=== PATIENT | male | born 1960 | race Caucasian/White ===

== ENCOUNTER 2018-10-29 16:10 | Emergency (ER) | payer OTHER, SELFPAY ==
[2018-10-29 16:17] VITALS: BP 187/77; PULSE 103; RESP 14; TEMP 36.7; O2SAT 99; BMI 24.0
--- NOTE | 2018-10-29 16:22 | ED.VISSUMM ---
- ER Visit Summary Date of Service: 10/29/18 Chief Complaint: [Allergic reaction] History of Present Illness: The patient is a 58 M [notes to the emergency department with an allergic reaction to a sting from an insect. Patient apparently was working in the yard when he felt something being him on the right side of the head. Patient developed a rash and became itchy. Patient describes some difficulty breathing. Patient anxious and hyperventilating on arrival the emergency department. Patient currently being treated for leukemia.] Physical Examination: [HEENT-PERRLA, EOMI. Cranial nerves II through XII grossly intact. TMs clear. Mucous membranes moist. No adenopathy. Diffuse facial erythema. There is no angioedema of the tongue or oropharynx or lips. Has some mild edema of the upper eyelids. Cardiovascular-regular rate and rhythm without murmur or ectopy Lungs-clear to auscultation, chest wall stable without crepitus or subcu emphysema Abdomen-normoactive bowel sounds, soft, nontender, no rebound or rigidity, no peritoneal signs. Skin exam-patient has some diffuse erythema of the upper chest and back as well as the upper extremities. Extremities-intact ?4, normal range of motion, normal pulses, atraumatic] Test Results: [] Emergency Department Course and Treatment: [Patient was given Solu-Medrol 125 mill grams IV. Patient initially on arrival was given subcu epi 0.3 mg. Patient given Pepcid 40 mg IV as well as Benadryl 50 mg IV.] Treatment Plan: [Patient will be observed in the department for 4 hours. After multiple evaluations in the department he is now symptom-free and facial erythema and edema have resolved. No evidence of angioedema. Respirations easy and unlabored. Patient will be given a prescription for an EpiPen and also we will treat with prednisone for the next 3 days.] Disposition: [Discharged home stable condition] Impression: [Allergic reaction to insect sting] This note was generated with Rebit dictation software. It may contain incorrect words, spelling, and punctuation that were not noted in review of the chart prior to signing ED Disposition - Plan for ED Patient: Referrals: Noam Jacobson MD [STAFF PHYSICIAN] -
[2018-10-29] MEDS: DiphenhydrAMINE 50 MG/ML Syringe IV (16:24)
[2018-10-29] MEDS: MethylPREDNISolone 125 MG/2 ML Vial IV (16:24)
[2018-10-29 16:31] VITALS: BP 155/75; PULSE 86; RESP 18; O2SAT 99
[2018-10-29 16:33] VITALS: BP 155/75; PULSE 85; RESP 17; O2SAT 99
[2018-10-29 18:11] VITALS: BP 119/63; PULSE 65; RESP 13; O2SAT 99
--- NOTE | 2018-10-29 18:37 | ED.DEP ---
ED Disposition - Plan for ED Patient: Instructions: ALLERGIC REACTION, Insect (General) Prescriptions: Prednisone [Deltasone] 20 mg PO BID #6 tab Prescription Printed Epi Pen (for allergic rxn) 0.3 mg SUBCUT X1 PRN #2 syringe PRN Reason: Anaphylaxis Prescription Printed Referrals: Noam Jacobson MD [STAFF PHYSICIAN] - Luz Maria Diallo MD [STAFF PHYSICIAN] - As Needed
[2018-10-29 19:14] VITALS: BP 123/64; PULSE 65; RESP 17; O2SAT 99
[2018-10-29 20:12] VITALS: BP 129/66; PULSE 99; RESP 16; O2SAT 99
== END 2018-10-29 20:13 | disposition home or self-care (01) ==
LOC: ED 17:06
PROVIDERS: Emergency Provider Emergency Medicine; Family Provider Family Medicine; PCP Family Medicine
DX: T63.481A Toxic effect of venom of other arthropod, accidental (unintentional), initial encounter (principal); R21 Rash and other nonspecific skin eruption; C95.90 Leukemia, unspecified not having achieved remission
CPT/HCPCS: 96372; 96374; 96375; 99282; A4216; J3490

== ENCOUNTER → 2019-10-19 12:08 | Outpatient (CLI) | payer OTHER, SELFPAY ==
[2019-10-19 12:33] LABS: Anion Gap 2 (5-15); BUN 19 mg/dL (7-18); BUN/Creat Ratio 13.3 RATIO (10-20); Calcium,Total 8.9 mg/dL (8.5-10.1); Chloride 108 mmol/L (98-107); Creatinine, Serum 1.43 mg/dL (0.70-1.30); EST Glomerular Filtration Rate 53 mL/min (>60); Est Glom Filt Rate - Afr Amer 65 mL/min (>60); Glucose 134 mg/dL (74-106); Potassium 4.3 mmol/L (3.5-5.1); Sodium Level 139 mmol/L (136-145)
[2019-10-19 12:54] LABS: Microalbumin,Random Urine < 5.0 mg/L (NO RANGE EST.)
== END ==
PROVIDERS: PCP Family Medicine; Referring Provider Family Medicine; Visit Provider Family Medicine
DX: I12.9 Hypertensive chronic kidney disease with stage 1 through stage 4 chronic kidney disease, or unspecified chronic kidney disease (principal); N18.3 Chronic kidney disease, stage 3 (moderate)
CPT/HCPCS: 80048; 82043; 82570

== ENCOUNTER 2020-06-03 10:15 | Outpatient (RCR) | payer OTHER, SELFPAY ==
[2020-06-03] MEDS: COVID-19 VACC, MRNA(PFIZER)/PF 30 MCG/0.3 ML SYRINGE IM (10:18)
[2020-06-24] MEDS: COVID-19 VACC, MRNA(PFIZER)/PF 30 MCG/0.3 ML SYRINGE IM (10:06)
== END 2020-08-26 23:59 ==
LOC: IMMUN 10:15
PROVIDERS: PCP Family Medicine; Visit Provider Family Medicine
DX: Z23 Encounter for immunization (principal)
CPT/HCPCS: 0001A; 0002A; 91300

== ENCOUNTER 2021-07-06 22:00 | Emergency (ER) | payer OTHER, SELFPAY ==
[2021-07-06 22:01] VITALS: BP 190/99; PULSE 82; RESP 18; TEMP 36.6; O2SAT 100; BMI 25.2
[2021-07-06 22:35] LABS: Bacteria 0 SEEN /hpf (None Seen); Mucous, Urine 0 SEEN /hpf (<or=2+); Red Blood Cells-Urine 0 SEEN /hpf (0-5); Squamous Epithelial Cells - UA 0 SEEN /hpf (0-5); White Blood Cells 0 SEEN /hpf (0-5)
[2021-07-06 22:38] LABS: Absolute Neutrophil Count 10.2 X10^3/uL (2.0-7.7); Basophil# 0.03 X10^3/uL; Basophil% 0.2 % (0-1); Eosinophil# 0.13 X10^3/uL; Hematocrit 39.5 % (40-54); Hemoglobin 13.5 g/dL (13.0-16.5); Mean Corp Hgb Conc 34.2 g/dL (32-36); Mean Corpuscular Volume 102.3 fL (80-94); Mean Platelet Vol. 9.7 fl (6.2-12.0); Monocyte% 7.8 % (0-10); NRBC Flagged by Analyzer 0 % (0-5); Neutrophil # 10.18 X10^3/uL (2.7-7.7); Neutrophil % 79.8 % (47-70); Platelet Count 219 K/mm3 (150-450); RBC Distribution Width CV 13.2 % (11.6-14.6); RBC Distribution Width SD 49.5 fl (35.1-43.9); Red Blood Count 3.86 M/mm3 (4.6-6.2); White Blood Count 12.8 K/mm3 (4.4-11.0)
[2021-07-06 22:40] LABS: Color, Urine Yellow (Yellow); Glucose, Dipstick Normal (Normal); Ketone-Dipstick Negative (Negative); Leukocyte Esterase-Dipstick Negative /ul (Negative); Nitrite-Dipstick Negative (Negative); Occult Blood-Urine Negative /ul (Negative); Protein-Dipstick Negative (Negative); Urine Bilirubin Dipstick Negative (Negative); Urine Clarity Clear (Clear); Urine Urobilinogen Normal (Normal)
--- NOTE | 2021-07-06 22:51 | ED.VIS.GI ---
HPI HPI - GI History of Present Illness Chief Complaint: Abd Pain Narrative Narrative: Patient presenting with nausea and epigastric burning. This started this morning upon awakening. Patient states that last night before bed he had chicken Parmesan. He is not a drinker. He states that the burning was less severe this morning and he had orange juice and breakfast. At lunch he had chicken noodle soup and more bland food. He does not have radiation of the pain. Mild nausea without vomiting. No diarrhea or constipation. No fever or chills. PFSH PFSH Home Medications epinephrine 0.3 mg SUBCUT X1 PRN #2 syringe 10/29/18 [Rx Last Taken Unknown] prednisone 20 mg PO BID #6 tab 10/29/18 [Rx Last Taken Unknown] ondansetron 4 mg PO Q8H PRN #10 tab 07/06/21 [Rx Last Taken Unknown] sucralfate [Carafate] 1 g PO BID PRN #200 ml 07/06/21 [Rx Last Taken Unknown] Allergy/AdvReac Type Severity Reaction Status Date / Time erythromycin lactobionate Allergy Rash Verified 07/06/21 22:03 [From Erythrocin] Penicillins [PCN] Allergy Rash Verified 07/06/21 22:03 Social History Smoking Status: Never smoker ROS ROS ED Constitutional Constitutional ED: Denies chills or fever(s) ENT ENT ED: Denies rhinorrhea or sore throat Cardiovascular Cardiovascular: Denies chest pain or palpitations Respiratory/Chest Respiratory/Chest: Denies cough or dyspnea Gastrointestinal Gastrointestinal: Reports abdominal pain and nausea; Denies diarrhea or vomiting Genitourinary Genitourinary ED: Denies dysuria or hematuria Musculoskeletal Musculoskeletal: Denies myalgias Integumentary Denies abscess or rash Neurologic Neurologic: Denies headache(s) or weakness Psychiatric Psychiatric: Denies anxiety or depression EXAM Physical Exam Const Vital Signs: 07/06/21 22:01 Temperature 97.8 F Temperature Source Temporal Pulse Rate 82 Respiratory Rate 18 Blood Pressure 190/99 H Blood Pressure Mean 129 Pulse Ox 100 Oxygen Delivery Method Room Air Positive well nourished General Appearance ED: NAD; Negative for pallor HEENT Reports moist mucous membranes normocephalic and atraumatic Eyes PERRL and EOMs intact bilaterally Resp normal respiratory effort and clear to auscultation bilaterally Cardio regular rate and regular rhythm GI Palpation: soft and tender epigastric Neuro Sensorium / Orientation: alert, oriented to person, oriented to place and oriented to time Psych mental status grossly normal and thought process normal Skin General Skin Exam: Negative for jaundice or pallor Lesions: no lesions Rashes: no rashes MDM MDM MDM Narrative Medical decision making narrative: Patient presenting with epigastric burning. It does appear to be more of a dyspepsia. He has had tomato sauce and orange juice which is worsening his symptoms. I did obtain basic lab work but gave the patient a GI cocktail and Zofran. After GI cocktail and Zofran patient had significant improvement. He states his pain is a 3 or 4. CBC and CMP are only remarkable for slight leukocytosis at 12.8. Urinalysis is normal. Since the patient is feeling better I think he is safe for discharge. I do not believe he needs any CT imaging. After discussion with him it sounds like he has had lasagna 2 nights in a row followed by the chicken Parmesan, orange juice for breakfast and a fair amount of coffee which may be irritating his stomach lining. Could be discharged home with Zofran and Carafate. He will follow-up with his PCP to ensure resolution. Impression: 1. Epigastric pain 2. Gastritis Lab Data Labs: Laboratory Results - last 24 hr 07/06/21 07/06/21 07/06/21 22:20 22:20 22:20 WBC 12.8 H RBC 3.86 L Hgb 13.5 Hct 39.5 L MCV 102.3 H MCH 35.0 H MCHC 34.2 RDW Std Deviation 49.5 H RDW Coeff of Thaddeus 13.2 Plt Count 219 MPV 9.7 Immature Gran % (Auto) 0.200 Neut % (Auto) 79.8 H Lymph % (Auto) 11.0 L [place] % (Auto) 7.8 Eos % (Auto) 1.0 Baso % (Auto) 0.2 Absolute Neuts (auto) 10.2 H Absolute Lymphs (auto) 1.40 Nucleated RBC % 0 Sodium 139 Potassium 3.8 Chloride 107 Carbon Dioxide 26.0 Anion Gap 6 BUN 15 Creatinine 1.50 H Estim Creat Clear Calc 50.41 Est GFR (MDRD) Af Amer 61 Est GFR (MDRD) Non-Af 50 L BUN/Creatinine Ratio 10.0 Glucose 123 H Calcium 9.0 Total Bilirubin 0.50 AST 18 ALT 26 Alkaline Phosphatase 64 Total Protein 7.0 Albumin 4.1 Globulin 2.9 Albumin/Globulin Ratio 1.4 Lipase 255 Urine Color Yellow Urine Clarity Clear Urine pH 6.0 Ur Specific [place] 1.010 Urine Protein Negative Urine Glucose (UA) Normal Urine Ketones Negative Urine Occult Blood Negative Urine Nitrite Negative Urine Bilirubin Negative Urine Urobilinogen Normal Ur Leukocyte Esterase Negative Urine RBC 0 SEEN Urine WBC 0 SEEN Ur Squamous Epith Cells 0 SEEN Urine Bacteria 0 SEEN Urine Mucus 0 SEEN Discharge Plan Triage Chief Complaint: Abd Pain ED Provider: Glenn Kidd Dx/Rx/DC Orders Instructions: ED GERD (Adult) Prescriptions: New ondansetron 4 mg tablet,disintegrating 4 mg PO Q8H PRN (Reason: nausea and vomiting) Qty: 10 RF: 0 sucralfate [Carafate] 100 mg/mL suspension 1 g PO BID PRN (Reason: gastrointestinal spasms or cramping) Qty: 200 RF: 0 No Action prednisone 20 MG tablet 20 mg PO BID Qty: 6 RF: 0 epinephrine 0.3 MG syringe 0.3 mg subcut X1 PRN (Reason: Anaphylaxis) Qty: 2 RF: 0 Primary Care Provider: Guero Marie Referrals: Guero Marie MD [Primary Care Provider] - Disposition Disposition: Home, Self Care
[2021-07-06 22:57] LABS: ALB/GLOB Ratio 1.4 RATIO (0.9-2.4); AST(SGOT) 18 U/L (15-37); Alanine Aminotransfer ALT/SGPT 26 U/L (16-61); Albumin, Serum 4.1 g/dL (3.2-5.0); Alkaline Phosphatase 64 U/L (45-117); Anion Gap 6 (5-15); BUN 15 mg/dL (7-18); Chloride 107 mmol/L (98-107); EST Glomerular Filtration Rate 50 mL/min (>60); Est Glom Filt Rate - Afr Amer 61 mL/min (>60); Estimated Creatinine Clearance 50.41 ml/min; Globulin 2.9 g/dL (2.2-4.2); Glucose 123 mg/dL (74-106); Lipase 255 U/L (73-393); Potassium 3.8 mmol/L (3.5-5.1); Sodium Level 139 mmol/L (136-145)
[2021-07-06] MEDS: Ondansetron 4 MG/2 ML Vial IV (23:11)
[2021-07-06] MEDS: Mag Hydrox/Al Hydrox/Simeth 30 ML UDC PO (23:11)
[2021-07-07 00:01] VITALS: RESP 17
[2021-07-07 00:04] VITALS: BP 132/74; PULSE 74
== END 2021-07-07 00:08 | disposition home or self-care (01) ==
PROVIDERS: Emergency Provider Student in an Organized Health Care Education/Training Program; PCP Family Medicine; Visit Provider Student in an Organized Health Care Education/Training Program
DX: K29.70 Gastritis, unspecified, without bleeding (principal); R10.13 Epigastric pain
CPT/HCPCS: 80053; 81001; 83690; 85025; 96374; 99283; A4216; J2405

== ENCOUNTER 2021-07-07 11:12 | Emergency (ER) | payer OTHER, SELFPAY ==
[2021-07-07 11:13] VITALS: BP 149/69; PULSE 78; RESP 16; TEMP 35.9; O2SAT 100; BMI 24.8
--- NOTE | 2021-07-07 11:41 | EKG12_ITS ---
Test Reason : AB PAIN Blood Pressure : / mmHG Vent. Rate : 070 BPM Atrial Rate : 070 BPM P-R Int : 126 ms QRS Dur : 078 ms QT Int : 398 ms P-R-T Axes : 056 012 050 degrees QTc Int : 429 ms Normal sinus rhythm Low voltage QRS (Limb Leads) Confirmed by DEEPTHI LOPEZ, VIRY ([id number]), design editor BECK MEDINA ([id number]) on 07/09/2021 10:53:37 AM Referred By: Confirmed By:VIRY LACEY MD
--- NOTE | 2021-07-07 11:41 | CT_ITS ---
EXAM: CT ABDOMEN AND PELVIS WITH INTRAVENOUS CONTRAST : 1960 CLINICAL INDICATION: abd pain TECHNIQUE: Helically acquired images were obtained of the abdomen and pelvis with intravenous contrast. This CT exam was performed using one or more of the following dose reduction techniques: automated exposure control, adjustment of the mA and/or kV according to patient size, and/or use of iterative reconstruction technique. This report was created using [employer] report generation technology. CONTRAST: IV 100mL Isovue-300 COMPARISON: 05/14/2014 FINDINGS: LOWER THORAX: Unremarkable. Lung bases are clear. No cardiomegaly. No significant pericardial effusion. ABDOMEN: LIVER: Unremarkable. Homogeneous. No focal mass. GALLBLADDER AND BILE DUCTS: Unremarkable. No calcified gallstones. No gallbladder distention or wall edema. No intra- or extrahepatic biliary ductal dilation. PANCREAS: See below. SPLEEN: Unremarkable. Normal size without focal cystic or solid mass. ADRENALS: Unremarkable. No nodules. KIDNEYS AND URETERS: Unremarkable. Normal renal size and position. No hydronephrosis. STOMACH AND BOWEL: There is mild inflammation seen surrounding the transverse duodenum. There is fatty infiltration seen in the neck of the pancreas. There is no discrete fluid collection identified. No stomach or bowel distention. No focal inflammatory change. PELVIS: APPENDIX: No evidence of acute appendicitis. BLADDER: There is some minimal thickening and irregularity of the urinary bladder anteriorly. REPRODUCTIVE: Unremarkable as visualized. No mass. ABDOMEN and PELVIS: INTRAPERITONEAL SPACE: Unremarkable. No ascites or other fluid collection. No free air. BONES/JOINTS: Unremarkable. No suspicious lytic or blastic abnormality. SOFT TISSUES: Unremarkable. No discrete abdominal or pelvic wall hernia. VASCULATURE: Unremarkable. Abdominal aorta is non-dilated. LYMPH NODES: Unremarkable. No enlarged lymph nodes. CT/Abdomen/Pelvis W IV Cont ONLY IMPRESSION: 1. Minimal inflammation seen surrounding the duodenum represent duodenitis. There is some fatty infiltration of the pancreas. The possibility of pancreatitis cannot be totally excluded. There is no discrete fluid collections identified. If indicated further evaluation with upper endoscopy may be beneficial. 2. Mild irregularity thickening of the wall the anterior bladder which may be due to cystitis. Individualized dose optimization techniques were used for this CT. at 1402 Reported and signed by: Willy Hayward MD Electronically Signed: Willy Hayward MD at 14:01 EDT ,
[2021-07-07 12:35] LABS: Absolute Lymphocyte Count 0.94 X10^3/uL (0.83-4.51); Absolute Neutrophil Count 12.2 X10^3/uL (2.0-7.7); Basophil# 0.03 X10^3/uL; Basophil% 0.2 % (0-1); Eosinophil# 0.01 X10^3/uL; Eosinophils% 0.1 % (0-5); Hematocrit 38.4 % (40-54); Hemoglobin 13.3 g/dL (13.0-16.5); Lymphocyte # 0.94 X10^3/ul (0.83-4.51); Lymphocyte % 6.5 % (19-41); Mean Corp Hgb Conc 34.6 g/dL (32-36); Mean Corpuscular Hgb 35.6 pg (27.0-32.0); Mean Corpuscular Volume 102.7 fL (80-94); Mean Platelet Vol. 9.9 fl (6.2-12.0); Monocyte# 1.18 X10^3/uL; Monocyte% 8.2 % (0-10); NRBC Flagged by Analyzer 0 % (0-5); Neutrophil # 12.23 X10^3/uL (2.7-7.7); Neutrophil % 84.5 % (47-70); Platelet Count 201 K/mm3 (150-450); RBC Distribution Width CV 13.2 % (11.6-14.6); RBC Distribution Width SD 49.4 fl (35.1-43.9); Red Blood Count 3.74 M/mm3 (4.6-6.2); White Blood Count 14.5 K/mm3 (4.4-11.0)
[2021-07-07] MEDS: Morphine 4 MG/ML Syringe IV (12:44)
[2021-07-07] MEDS: Ondansetron 4 MG/2 ML Vial IV (12:44)
[2021-07-07] MEDS: 0.9% Normal Saline 1,000 ML 125 ML IV (12:44)
[2021-07-07 12:50] VITALS: BP 133/66; PULSE 65; O2SAT 100
[2021-07-07 12:52] LABS: ALB/GLOB Ratio 1.4 RATIO (0.9-2.4); AST(SGOT) 17 U/L (15-37); Alanine Aminotransfer ALT/SGPT 23 U/L (16-61); Albumin, Serum 3.7 g/dL (3.2-5.0); Alkaline Phosphatase 59 U/L (45-117); Anion Gap 6 (5-15); BUN 17 mg/dL (7-18); BUN/Creat Ratio 12.4 RATIO (10-20); Calcium,Total 8.2 mg/dL (8.5-10.1); Chloride 108 mmol/L (98-107); Creatinine, Serum 1.37 mg/dL (0.70-1.30); EST Glomerular Filtration Rate 56 mL/min (>60); Est Glom Filt Rate - Afr Amer 67 mL/min (>60); Estimated Creatinine Clearance 55.19 ml/min; Globulin 2.7 g/dL (2.2-4.2); Glucose 114 mg/dL (74-106); Lipase 138 U/L (73-393); Potassium 3.9 mmol/L (3.5-5.1); Protein, Total 6.4 g/dL (6.4-8.2); Sodium Level 140 mmol/L (136-145); Troponin-I HS 5 pg/mL (3.0-78.0)
--- NOTE | 2021-07-07 13:07 | EX.ED.DYSGE1 ---
HPI History of Present Illness Chief Complaint: Abd Pain Informant: patient Narrative Narrative: Patient is a 65-year-old male with history of diverticulitis presenting with worsening abdominal pain. Patient was seen yesterday for the same symptoms. He states symptoms started yesterday morning. He had lab work that was unremarkable and was given a GI cocktail. He had improvement of his symptoms and was discharged home with a prescription for sucralfate however they had not had time to get it filled. Patient states the pain is in his epigastric and periumbilical region and radiates up into his chest. States has been having normal bowel movements. Denies any black or blood in stool. Denies any fever or chills. No change in symptoms with food. No associated nausea or vomiting. Reports that the pain reminds him of when he had diverticulitis. Patient has had partial colonic resection with anastomosis performed by Dr. Christiansen. [facility] Medical History Diverticulitis Hypertension Leukemia Home Medications epinephrine 0.3 mg IM X1 PRN 07/07/21 [History Last Taken Unknown] famotidine [Pepcid] 20 mg PO BID #30 tab 07/07/21 [Rx Last Taken Unknown] hydrocodone-acetaminophen 1 tab PO Q6H PRN 3 Days #12 tab 07/07/21 [Rx Last Taken Unknown] hydroxyzine HCl 25 mg PO Q6H PRN PRN 07/07/21 [History Last Taken Unknown] imatinib 400 mg PO DAILY 07/07/21 [History Last Taken Unknown] lisinopril 20 mg PO DAILY 07/07/21 [History Last Taken Unknown] sucralfate [Carafate] 1 g PO Q6H #20 tab 07/07/21 [Rx Last Taken Unknown] tamsulosin [Flomax] 0.4 mg PO DAILY #30 cap 07/07/21 [Rx Last Taken Unknown] Allergy/AdvReac Type Severity Reaction Status Date / Time erythromycin lactobionate Allergy Rash Verified 07/07/21 11:12 [From Erythrocin] Penicillins [PCN] Allergy Rash Verified 07/07/21 11:12 Surgical History History of appendectomy History of partial colectomy History of tonsillectomy and adenoidectomy Social History Smoking Status: Never smoker ROS ROS ED Constitutional Constitutional ED: Denies chills or fever(s) Eyes Eyes: Denies blurry vision ENT ENT ED: Denies sore throat Cardiovascular Cardiovascular: Reports chest pain Respiratory/Chest Respiratory/Chest: Denies cough or dyspnea Gastrointestinal Gastrointestinal: Reports abdominal pain; Denies constipation, diarrhea, nausea or vomiting Genitourinary Genitourinary ED: Denies dysuria or hematuria Musculoskeletal Musculoskeletal: Denies arthralgias or myalgias Integumentary Denies rash Neurologic Neurologic: Denies headache(s) Psychiatric Psychiatric: Denies depression EXAM Physical Exam Const Vital Signs: 07/07/21 11:13 07/07/21 12:50 07/07/21 14:00 Temperature 96.6 F L Temperature Source Temporal Pulse Rate 78 65 75 Respiratory Rate 16 18 Blood Pressure 149/69 H 133/66 H 104/58 L Blood Pressure Mean 95 88 73 Pulse Ox 100 100 97 Oxygen Delivery Method Room Air Room Air Room Air Positive well nourished and well developed General Appearance ED: well developed HEENT Reports moist mucous membranes Eyes PERRL Neck no lymphadenopathy and supple Chest Wall inspection of chest normal Resp normal respiratory effort and clear to auscultation bilaterally Cardio regular rate, regular rhythm and no murmurs GI Inspection: abdominal distention Auscultation: hypoactive bowel sounds Palpation: soft and tender epigastric, periumbilical and suprapubic; Negative for guarding or rebound tenderness present Back/Spine no CVA tenderness Extremity normal to inspection General Extremety ED: Negative for edema or tenderness General Extremity: Negative for edema Neuro oriented x3 Sensorium / Orientation: alert Motor Exam: Negative for general weakness Psych mental status grossly normal Skin no rashes or lesions noted MDM MDM MDM Narrative Medical decision making narrative: Patient evaluated for worsening/persistent epigastric pain. Said it is quite tender. As he had a work-up yesterday but did not have a CT we will add that on today. He does have a worsening leukocytosis at 14.5. CT of abdomen pelvis shows duodenitis with inflammation extending to the pancreas. Patient does not drink alcohol and lipase is normal. Do not think clinically this is appendicitis at this time. In addition patient does have irregular thickening of the anterior bladder wall and bladder knutson distended. Patient notes that he does not take Flomax but it looks like he has been on in the past. He states he does get up often at night to urinate. He attempted to urinate and only had a small amount of urine. Bladder scan shows a significant mount of urine in the bladder. Martinez catheter was placed as I suspect he also has acute urinary retention. He is given outpatient follow-up with Dr. Leija. His case was discussed with Dr. Friend, GI. He is agreeable with outpatient follow-up. Patient started on an H2 victor m, Carafate and given short course of pain medicine. It is possible that his duodenitis could be from his imatinib however recommendation at this time is to keep him on that as the benefits outweigh the risk. Patient is informed and agreeable to this. Lab Data Attestation: I reviewed the patient's lab results. Labs: Laboratory Results - last 24 hr 07/07/21 07/07/21 07/07/21 12:29 12:29 14:45 WBC 14.5 H RBC 3.74 L Hgb 13.3 Hct 38.4 L MCV 102.7 H MCH 35.6 H MCHC 34.6 RDW Std Deviation 49.4 H RDW Coeff of Thaddeus 13.2 Plt Count 201 MPV 9.9 Immature Gran % (Auto) 0.500 Neut % (Auto) 84.5 H Lymph % (Auto) 6.5 L [place] % (Auto) 8.2 Eos % (Auto) 0.1 Baso % (Auto) 0.2 Absolute Neuts (auto) 12.2 H Absolute Lymphs (auto) 0.94 Nucleated RBC % 0 Sodium 140 Potassium 3.9 Chloride 108 H Carbon Dioxide 26.0 Anion Gap 6 BUN 17 Creatinine 1.37 H Estim Creat Clear Calc 55.19 Est GFR (MDRD) Af Amer 67 Est GFR (MDRD) Non-Af 56 L BUN/Creatinine Ratio 12.4 Glucose 114 H Calcium 8.2 L Total Bilirubin 0.80 AST 17 ALT 23 Alkaline Phosphatase 59 Troponin I High Sens 5 Total Protein 6.4 Albumin 3.7 Globulin 2.7 Albumin/Globulin Ratio 1.4 Lipase 138 Urine Color Yellow Urine Clarity Clear Urine pH 5.0 Ur Specific [place] 1.010 Urine Protein Negative Urine Glucose (UA) Normal Urine Ketones 15 H Urine Occult Blood 10 H Urine Nitrite Negative Urine Bilirubin Negative Urine Urobilinogen Normal Ur Leukocyte Esterase Negative Urine RBC 0 SEEN Urine WBC 0 SEEN Ur Squamous Epith Cells 0 SEEN Urine Bacteria 0 SEEN Urine Mucus 0 SEEN Radiography Diagnostic Testing: Clinical Impression(s) from Imaging Studies Abdomen/Pelvis CT 07/07/21 11:41 IMPRESSION: 1. Minimal inflammation seen surrounding the duodenum represent duodenitis. There is some fatty infiltration of the pancreas. The possibility of pancreatitis cannot be totally excluded. There is no discrete fluid collections identified. If indicated further evaluation with upper endoscopy may be beneficial. 2. Mild irregularity thickening of the wall the anterior bladder which may be due to cystitis. Individualized dose optimization techniques were used for this CT. at 1402 Reported and signed by: Willy Hayward MD Electronically Signed: Willy Hayward MD at 14:01 EDT , Rhythm Strip Rhythm Strip: Sinus Rhythm Rate: 70 Ectopy: None EKG Initial EKG: Attestation: I personally reviewed and interpreted this EKG as follows: Interpretation: Sinus Rhythm Comments: Normal sinus rhythm at a rate of 70 Normal axis Normal intervals Normal ST segments Discharge Plan Triage Chief Complaint: Abd Pain Other Complaint: Chest Pain ED Provider: Razia Parrish Dx/Rx/DC Orders Clinical Impression: Acute duodenitis, Abdominal pain, Acute urinary retention Instructions: Duodenitis Prescriptions: New famotidine [Pepcid] 20 mg tablet 20 mg PO BID Qty: 30 RF: 0 sucralfate [Carafate] 1 gram tablet 1 g PO Q6H Qty: 20 RF: 0 hydrocodone-acetaminophen 5-325 mg tablet 1 tab PO Q6H PRN (Reason: pain) 3 Days Qty: 12 RF: 0 tamsulosin [Flomax] 0.4 mg capsule 0.4 mg PO DAILY Qty: 30 RF: 0 No Action lisinopril 20 mg tablet 20 mg PO DAILY RF: 0 hydroxyzine HCl 25 mg tablet 25 mg PO Q6H PRN PRN (Reason: Anxiety) RF: 0 epinephrine 0.3 mg/0.3 mL auto-injector 0.3 mg IM X1 PRN (Reason: Anaphylaxis) RF: 0 imatinib 400 mg tablet 400 mg PO DAILY RF: 0 Primary Care Provider: Guero Marie Referrals: Jb Leija MD [STAFF PHYSICIAN] - 5-7 Days Guero Marie MD [Primary Care Provider] - Polo,DO Chava [STAFF PHYSICIAN] - Disposition Disposition: Home, Self Care
[2021-07-07 14:00] VITALS: BP 104/58; PULSE 75; RESP 18; O2SAT 97
[2021-07-07] MEDS: Mag Hydrox/Al Hydrox/Simeth 30 ML UDC PO (14:40)
[2021-07-07 14:51] LABS: Bacteria 0 SEEN /hpf (None Seen); Mucous, Urine 0 SEEN /hpf (<or=2+); Red Blood Cells-Urine 0 SEEN /hpf (0-5); Squamous Epithelial Cells - UA 0 SEEN /hpf (0-5); White Blood Cells 0 SEEN /hpf (0-5)
[2021-07-07 14:55] LABS: Color, Urine Yellow (Yellow); Glucose, Dipstick Normal (Normal); Ketone-Dipstick 15 mg/dl (Negative); Leukocyte Esterase-Dipstick Negative /ul (Negative); Nitrite-Dipstick Negative (Negative); Occult Blood-Urine 10 /ul (Negative); Protein-Dipstick Negative (Negative); Urine Bilirubin Dipstick Negative (Negative); Urine Clarity Clear (Clear); Urine Urobilinogen Normal (Normal)
[2021-07-07 16:00] VITALS: BP 106/63; PULSE 74; RESP 18; O2SAT 100
--- NOTE | 2021-07-07 17:10 | ED.RN ---
Much teaching provided regarding higgins catheter care at home.
[2021-07-07 17:11] VITALS: BP 110/65
== END 2021-07-07 17:13 | disposition home or self-care (01) ==
PROVIDERS: Emergency Provider Emergency Medicine; PCP Family Medicine; Visit Provider Emergency Medicine
DX: K29.80 Duodenitis without bleeding (principal); R10.9 Unspecified abdominal pain; R33.9 Retention of urine, unspecified; I10 Essential (primary) hypertension; Z79.899 Other long term (current) drug therapy
CPT/HCPCS: 51702; 74177; 80053; 81001; 83690; 84484; 85025; 93005; 96374; 96375; 99284; J7030; Q9967; J2405

== ENCOUNTER 2021-08-14 10:50 | Observation (INO) | payer OTHER, SELFPAY ==
[2021-08-14] VITALS (13 sets, daily range): BP systolic 94–135; BP diastolic 62–79; PULSE 58–80; RESP 12–18; TEMP 36.4–37.4; O2SAT 93–99; BMI 24.3
[2021-08-14] MEDS: Lactated Ringers 1,000 ML 15 ML IV ×2 (06:36→09:20)
[2021-08-14] MEDS: Cefazolin 2 GM in 0.9% Normal Saline 100 ML IV (07:18)
--- NOTE | 2021-08-14 07:21 | PCM.HP.STD ---
HPI - General HPI Narrative TYESHA BATISTA, is a 61 M who presents for a TURP had retention of urine but now is not emptying completely. [facility] Medical History (Updated 08/07/21 @ 10:58 by Heidi Brown) Anxiety Back pain Blister Diverticulitis Former smoker Heartburn History of edema History of stress test History of ulceration Hypertension Leg cramps Leukemia Prostate disease Shortness of breath on exertion Syncope Wears glasses Wears partial dentures Home Medications epinephrine 0.3 mg IM X1 PRN 07/07/21 [History Last Taken Unknown] imatinib 400 mg PO DAILY 07/07/21 [History Last Taken Unknown] lisinopril 20 mg PO DAILY 07/07/21 [History Last Taken Unknown] tamsulosin [Flomax] 0.4 mg PO DAILY #30 cap 07/07/21 [Rx Last Taken Unknown] finasteride 5 mg PO QHS 08/07/21 [History Last Taken Unknown] fluticasone propionate 1 spray INTRANASAL PRN PRN 08/07/21 [History Last Taken Unknown] loratadine [Claritin] 10 mg PO DAILY PRN 08/07/21 [History Last Taken Unknown] ciprofloxacin HCl [Cipro] 500 mg PO BID #10 tab 08/14/21 [Rx Last Taken Unknown] Allergy/AdvReac Type Severity Reaction Status Date / Time erythromycin lactobionate Allergy Rash Verified 08/14/21 06:31 [From Erythrocin] Penicillins [PCN] Allergy Rash Verified 08/14/21 06:31 Surgical History (Updated 08/07/21 @ 10:58 by Heidi Brown) History of appendectomy History of partial colectomy History of tonsillectomy and adenoidectomy Hx of colonoscopy Social History Smoking Status: Former smoker Vital Signs Vital Signs Vital Signs: 08/14/21 06:32 Temperature 99.0 F Temperature Source Temporal Pulse Rate 76 Respiratory Rate 16 Respiratory Pattern Normal Blood Pressure 127/79 H Blood Pressure Mean 95 Blood Pressure Source Monitor Blood Pressure Position Semi-Fowlers Blood Pressure Location Right Arm Pulse Ox 99 Oxygen Delivery Method Room Air Weight Weight: 74.571 kg Body Mass Index (BMI) 24.3
--- NOTE | 2021-08-14 07:25 | PCM.DC ---
Discharge Instructions Diet Discharge Diet: No restrictions Activity Discharge Activity: Return to Normal Activity and May Not Drive (while taking narcotic pain medications.) Dressing / Incision Call your doctor if you observe: Fever of 101 or Higher Follow Up Care Please Follow Up With: Jb Leija MD When: Call [phone] for an appointment Test Results: Test results from this visit will be discussed in further detail at your follow-up appointment, if applicable. Discharge Plan Admission Primary Reason for Your Visit: TURP Attending Provider: Jb Leija Primary Care Provider: Guero Marie Instructions Patient Instructions: [facility] Discharge Orders/Prescriptions Prescriptions: New ciprofloxacin HCl [Cipro] 500 mg tablet 500 mg PO BID Qty: 10 RF: 0 Continued lisinopril 20 mg tablet 20 mg PO DAILY RF: 0 epinephrine 0.3 mg/0.3 mL auto-injector 0.3 mg IM X1 PRN (Reason: Anaphylaxis) RF: 0 imatinib 400 mg tablet 400 mg PO DAILY RF: 0 tamsulosin [Flomax] 0.4 mg capsule 0.4 mg PO DAILY Qty: 30 RF: 0 fluticasone propionate 50 mcg/actuation [place],Suspension 1 spray INTRANASAL PRN PRN (Reason: ALLERGIES) RF: 0 finasteride 5 mg Tablet 5 mg PO QHS RF: 0 loratadine [Claritin] 10 mg Tablet 10 mg PO DAILY PRN (Reason: ALLERGIES) RF: 0 Referrals / Follow Up: Jb Leija MD [STAFF PHYSICIAN] - Guero Marie MD [Primary Care Provider] - Disposition Disposition (needs filled in before D/C Order can be placed): Home, Self Care
--- NOTE | 2021-08-14 07:30 | PROS_PTH ---
PATIENT: TYESHA BATISTA LOC: MS3 U#:[id number] AGE/SX: 61/M ROOM: [facility] [place] RE08/14/[address]: Dr. Jb Leija MD : 1960 BED: 1 DIS: 08/15/2021 SPEC #: [id number] RECD: 08/14/21 10:27 STATUS: THALIA DAHL #: [id number] GILMA: 08/14/21 07:[address]: Jb Leija DEPT: SURGICAL PATHOLOGY RECD BY: Estefany Beltran ENTERED: 08/14/21 10:38 SP TYPE: TURP OTHR DR: Dr. Guero Marie MD Tissues: Prostate, NOS Procedures: Surgery Specimen Level IV HEADER OPERATION: Cysto, TUR prostate, Olymp[employer] PRE-OP DIAGNOSIS: Benign prostatic hyperplasia with lower urinary tract symptoms, retention of urine TISSUE SUBMITTED: Prostate tissue MICROSCOPIC DIAGNOSIS Prostate, transurethral resection: Mild chronic inflammation. AM:helene 08/18/2021 MICROSCOPIC DESCRIPTION Slides are reviewed. GROSS DESCRIPTION Received is one container labeled with the patient's name and designated prostate tissue. The specimen consists of multiple irregular fragments of pink-mast, rubbery, soft tissue that in aggregate weigh 1.3 gm and measure in aggregate 3 x 3 x 0.3 cm. The entire specimen is submitted in one cassette. / SJ:helene 08/14/2021 TC:3 CPT: 79030
--- NOTE | 2021-08-14 07:52 | PCM.OPRPT ---
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 We discussed how a prostate resection is done and we discussed the risk of the surgery including, bleeding, infection, retrograde ejaculation, changes with ejaculation or intercourse,. We discussed the possibility that the resection of the prostate may not alleviate his urinary symptoms. We discussed the small risk of developing scar tissue along the urethral channel and strictures. We also discussed the chance of the prostate could grow back and he may need further surgery or treatment in the future for prostate problems. Patient was taken back to the operating room, timeout procedure was performed, he was identified and marked and placed on the operating room table. He underwent general anesthesia. He was placed in dorsolithotomy position. Penis and testicles were prepped and draped in usual sterile fashion. Went into the bladder using the visual obturator with a resectoscope. Once inside the bladder identified the right and left ureteral orifice. He has an extremely stretched out hypotonic bladder. I then identified the prostate and the anatomy of the prostate. I marked out the area of the sphincter and the verumontanum was identified. I then proceeded with the prostate resection first resected the median lobe. And then resected the right lobe of the prostate. Then to resect the left lobe of the prostate. I then resected the apical tissue of the prostate. This was a complete resection of all obstructive tissue to improve voiding and relieve obstruction, but it was a very small prostate. I then made sure that there was no injury to the sphincter or the verumontanum was still intact. At the end of the resection all the chips were Ellik out of the bladder. I then identified the left and right ureteral orifice and these were confirmed to be in good position and effluxing and not injured. The resectoscope was removed, a 22 [place] catheter was placed into the bladder on continuous irrigation. And the urine was fairly light pink color and draining normally. He was taken back to the PACU in good condition. Surgeon: rebecca Type of Anesthesia: General Drains: 20 fr higgins Admit VTE Documentation VTE Present on Admission: No VTE Mechan Device Prophylaxis: SCD's VTE Pharm Prophylaxis ordered?: No
[2021-08-14] MEDS: Lisinopril 20 MG Tablet PO (10:54)
[2021-08-14] MEDS: Ciprofloxacin 500 MG Tablet PO ×2 (12:14→22:13)
[2021-08-14] MEDS: Tamsulosin HCl 0.4 MG Capsule PO (17:42)
[2021-08-14] MEDS: Finasteride 5 MG Tablet PO (22:10)
[2021-08-14] MEDS: Acetaminophen 500 MG Tablet PO (22:10)
[2021-08-15 02:12] VITALS: BMI 24.3
[2021-08-15 02:27] VITALS: BP 107/57; PULSE 54; RESP 18; TEMP 36.5; O2SAT 94
[2021-08-15] MEDS: Lisinopril 20 MG Tablet PO (08:47)
[2021-08-15] MEDS: Ciprofloxacin 500 MG Tablet PO (08:48)
[2021-08-15 08:51] VITALS: BP 107/54; PULSE 107; RESP 16; TEMP 36.7; O2SAT 97
[2021-08-15 11:13] VITALS: BP 129/67; PULSE 75; RESP 16; TEMP 36.6; O2SAT 100
== END 2021-08-15 11:43 | disposition home or self-care (01) ==
LOC: MS3 11:45 → SDC 08-18 10:17
PROVIDERS: Admitting Provider Urology; PCP Family Medicine; Referring Provider Urology; Visit Provider Urology
PROC: (CPT 52601; principal; 2021-08-14 07:20)
DX: N40.1 Benign prostatic hyperplasia with lower urinary tract symptoms (principal); C92.10 Chronic myeloid leukemia, BCR/ABL-positive, not having achieved remission; N17.9 Acute kidney failure, unspecified; N18.31 Chronic kidney disease, stage 3a; R33.9 Retention of urine, unspecified; Z87.891 Personal history of nicotine dependence; N13.8 Other obstructive and reflux uropathy; N31.2 Flaccid neuropathic bladder, not elsewhere classified; Z79.899 Other long term (current) drug therapy; Z87.19 Personal history of other diseases of the digestive system; R06.02 Shortness of breath; K52.9 Noninfective gastroenteritis and colitis, unspecified; I12.9 Hypertensive chronic kidney disease with stage 1 through stage 4 chronic kidney disease, or unspecified chronic kidney disease; E78.5 Hyperlipidemia, unspecified; E87.2 Acidosis; R73.9 Hyperglycemia, unspecified; D50.9 Iron deficiency anemia, unspecified; K62.5 Hemorrhage of anus and rectum; F41.9 Anxiety disorder, unspecified; N40.0 Benign prostatic hyperplasia without lower urinary tract symptoms
CPT/HCPCS: 52601; 43239; 36415; 71260; 74177; 80048; 80053; 81001; 83036; 83605; 83690; 85014; 85018; 85025; 85610; 85730; 86850; 86900; 86901; 87040; 87070; 87075; 87077; 87086; 87186; 87205; 87493; 87506; 88305; 93005; 96361; 96365; 96366; 96375; 96376; 99218; 99285; J2185; J7030; J7050; J7120; Q9967; A4216; G0378; J2405

== ENCOUNTER 2021-08-17 12:08 | Observation (INO) | payer OTHER, SELFPAY ==
[2021-08-17] VITALS (9 sets, daily range): BP systolic 67–139; BP diastolic 45–79; PULSE 61–76; RESP 15–36; TEMP 36.5–37.4; O2SAT 96–99; BMI 24.3; BMI 25.5
--- NOTE | 2021-08-17 12:45 | CT_ITS ---
STUDY: CT CHEST, ABDOMEN T PELVIS WITH CONTRAST REASON FOR EXAM: Male, 61 years old. Acute chest and back pain RADIATION DOSAGE (If Supplied By Facility): CTDIvol = ( 8.24 ) mGy, DLP = ( 577.05 ) mGycm TECHNIQUE: Transaxial imaging was performed following intravenous administration of IV 100mL Isovue-370. Individualized dose optimization techniques were used for this CT. COMPARISON: 07/07/2021 FINDINGS: CHEST Lungs are expanded with chronic interstitial changes and dependent atelectasis. No superimposed infiltrate or suspicious noncalcified mass or nodule. Soft tissue windows do not show evidence of pleural or pericardial effusion. Normal heart and pericardium. Normal mediastinum. Normal hilar regions. Normal unenhanced pulmonary arteries. Normal aorta arch and descending thoracic aorta. There are multi-level degenerative changes of the thoracic spine. ABDOMEN Normal liver. Normal gallbladder and extrahepatic biliary system. Normal spleen. Stable fatty infiltration of the pancreatic head and neck Normal bilateral adrenal glands. Normal right kidney. Normal left kidney. Normal visualized stomach. Nondistended fluid-filled small and large bowel loops are noted consistent with diffuse enteritis. Retained stool noted in the descending and sigmoid colon. Appendix not visualized Normal abdominal aorta. Normal inferior vena cava. Scattered subcentimeter mesenteric and retroperitoneal lymph nodes. Normal abdominal wall. There are diffuse degenerative changes of the visualized lumbar spine, and pelvis. PELVIS Diffuse bladder wall thickening suggests chronic cystitis. There is no pelvic fluid. There is no pelvic lymphadenopathy or mass lesion. Normal visualized pelvic arteries. CT/CT Chest, Abd, Pel w/Contrast IMPRESSION: Chronic interstitial changes in both lung kay with dependent atelectasis. No suspicious solid organ abnormality Nondistended fluid-filled small bowel and large bowel loops throughout all 4 quadrants of the abdomen consistent with diffuse enteritis. Diffuse bladder wall thickening suggests chronic cystitis No free intraperitoneal fluid, air, or suspicious adenopathy Degenerative bony changes Electronically Signed: Sacha Johnson MD at 13:40 EDT ,
--- NOTE | 2021-08-17 12:46 | EKG12_ITS ---
Test Reason : Blood Pressure : / mmHG Vent. Rate : 064 BPM Atrial Rate : 064 BPM P-R Int : 120 ms QRS Dur : 082 ms QT Int : 446 ms P-R-T Axes : 069 034 048 degrees QTc Int : 460 ms Normal sinus rhythm Normal ECG Confirmed by PALMA MURDOCK MD ([id number]), deputy editor in chief CAROLYN EHRNADEZ ([id number]) on 08/18/2021 1:29:42 PM Referred By: BRONSON Confirmed By:PALMA MURDOCK MD
[2021-08-17] MEDS: 0.9% Normal Saline 1,000 ML 1000 ML IV (12:53)
[2021-08-17] MEDS: fentaNYL 100 MCG/2 ML Ampul 50 MCG IV ×2 (12:53→13:49)
[2021-08-17] MEDS: Ondansetron 4 MG/2 ML Vial IV (12:54)
[2021-08-17 13:03] LABS: Absolute Lymphocyte Count 1.44 X10^3/uL (0.83-4.51); Absolute Neutrophil Count 10.7 X10^3/uL (2.0-7.7); Basophil# 0.03 X10^3/uL; Basophil% 0.2 % (0-1); Eosinophils% 0.8 % (0-5); Hematocrit 35.5 % (40-54); Hemoglobin 11.8 g/dL (13.0-16.5); Lymphocyte # 1.44 X10^3/ul (0.83-4.51); Lymphocyte % 11.1 % (19-41); Mean Corp Hgb Conc 33.2 g/dL (32-36); Mean Corpuscular Volume 105.3 fL (80-94); Mean Platelet Vol. 9.8 fl (6.2-12.0); Monocyte# 0.68 X10^3/uL; Monocyte% 5.2 % (0-10); NRBC Flagged by Analyzer 0 % (0-5); Neutrophil # 10.65 X10^3/uL (2.7-7.7); Platelet Count 178 K/mm3 (150-450); RBC Distribution Width CV 13.6 % (11.6-14.6); Red Blood Count 3.37 M/mm3 (4.6-6.2)
[2021-08-17 13:14] LABS: International Normalized Ratio 1.1; Partial Thromboplast Time 20.7 Seconds (24.1-36.2); Prothrombin Time (Protime)PT. 13.6 SECONDS (11.7-14.9)
--- NOTE | 2021-08-17 13:19 | EDS_ITS ---
HPI HPI - GI History of Present Illness Chief Complaint: Abd Pain Informant: patient and friend Narrative Narrative: Presents by EMS sudden onset of significant abdominal pain 90 minutes prior to arrival. His friend is currently present states he got called and patient called into the house stating severe pain. States he cannot move due to pain. He had a prostate procedure this past Tuesday by Dr. Leija. History of CML and hypertension. Reports partial colectomy in the past. Patient was on the commode trying to have a bowel movement when pain started. He did have a bowel movement. Nonbloody. No previous similar symptoms in the past. No other abdominal surgeries. States has never had a aorta evaluated in the past. [facility] Medical History Anxiety Back pain Blister Diverticulitis Former smoker Heartburn History of edema History of stress test History of ulceration Hypertension Leg cramps Leukemia Prostate disease Shortness of breath on exertion Syncope Wears glasses Wears partial dentures Home Medications epinephrine 0.3 mg IM X1 PRN 07/07/21 [History Last Taken Unknown] imatinib 400 mg PO DAILY 07/07/21 [History Last Taken 08/17/21 10:30] lisinopril 20 mg PO DAILY 07/07/21 [History Last Taken 08/17/21 10:00] finasteride 5 mg PO QHS 08/07/21 [History Last Taken 08/16/21 22:00] fluticasone propionate 1 spray INTRANASAL PRN PRN 08/07/21 [History Last Taken Unknown] loratadine [Claritin] 10 mg PO DAILY PRN 08/07/21 [History Last Taken Unknown] ciprofloxacin HCl [Cipro] 500 mg PO BID #10 tab 08/14/21 [Rx Last Taken 08/17/21 10:00] tamsulosin 0.4 mg PO QHS 08/17/21 [History Last Taken 08/16/21 22:00] Allergy/AdvReac Type Severity Reaction Status Date / Time erythromycin lactobionate Allergy Rash Verified 08/17/21 16:08 [From Erythrocin] Penicillins [PCN] Allergy Rash Verified 08/17/21 16:08 Surgical History H/O transurethral resection of prostate History of appendectomy History of partial colectomy History of tonsillectomy and adenoidectomy Hx of colonoscopy Social History Smoking Status: Former smoker ROS ROS ED Constitutional Constitutional ED: Denies chills, fever(s) or sweats Eyes Eyes: Denies change in vision ENT ENT ED: Denies dysphagia or sore throat Cardiovascular Cardiovascular: Denies chest pain, leg edema, palpitations or racing heartbeat Respiratory/Chest Respiratory/Chest: Denies cough, dyspnea or dyspnea on exertion Gastrointestinal Gastrointestinal: Reports abdominal pain; Denies diarrhea, nausea or vomiting Genitourinary Genitourinary ED: Denies dysuria, hematuria or urinary frequency Musculoskeletal Musculoskeletal: Denies back pain, extremity pain or neck pain Integumentary Denies rash or wounds Neurologic Neurologic: Denies headache(s), paresthesias or weakness EXAM Physical Exam Const Vital Signs: 08/17/21 12:09 08/17/21 12:16 08/17/21 13:09 Temperature 97.7 F L Temperature Source Axillary Pulse Rate 63 62 Respiratory Rate 22 H 17 Blood Pressure 67/45 L 77/45 L 123/55 H Blood Pressure Mean 52 55 77 Pulse Ox 96 97 Oxygen Delivery Method Room Air Room Air 08/17/21 13:35 Temperature 97.7 F L Temperature Source Oral Pulse Rate 61 Respiratory Rate 15 Blood Pressure 123/55 H Blood Pressure Mean 77 Pulse Ox 99 Oxygen Delivery Method Room Air Positive well nourished and well developed Constitutional Narrative: Uncomfortable nontoxic unable to move reporting help me General Appearance ED: well developed HEENT Reports moist mucous membranes normocephalic and atraumatic Eyes PERRL, EOMs intact bilaterally and conjunctivae normal General Eye ED: Yes normal appearance of both eyes Neck no lymphadenopathy and supple General: Negative for tenderness Chest Wall Chest: Negative for tenderness Resp normal respiratory effort and normal air movement Effort and Inspection: symmetric chest movement; Negative for respiratory distress Cardio regular rate, regular rhythm and no murmurs Peripheral Pulses: pulses 2+ throughout GI normal to inspection, nondistended, normoactive bowel sounds and non-distended GI Narrative: Tender palpation mid abdomen there is no distention no pulsatile mass. Palpation: soft Back/Spine no CVA tenderness and no thoracic nor lumbar tenderness Extremity normal to inspection General Extremety ED: Negative for edema or tenderness General Extremity: Negative for edema Neuro oriented x3 and no sensory deficits noted Sensorium / Orientation: awake and alert Skin no rashes or lesions noted and no wounds MDM MDM MDM Narrative Medical decision making narrative: Initial triage blood pressure systolic 60s and 70s, during my evaluation it was in the 90s. Patient a lot of discomfort more abdominal discomfort denied chest pains. Stat CT chest abdomen pelvis rule out dissection versus aneurysm with no previous evaluation. He is given fentanyl and Zofran. Sepsis labs were obtained. 1400: Results of CT chest abdomen pelvis negative for any acute aortic process. Reported nondistended fluid small bowel and colon throughout all 4 quadrants consistent with enteritis. Diffuse bladder wall thickening. Patient was treated additional pain medicines, controlling his symptoms. Lactic acid returned at 4.9 white count at 13 creatinine 1.91 up from 1.3. Lipase at 113. 1430: Discussion with patient he felt constipated for the last 2 days he took a Colace yesterday and then today. Small stool prior to evaluation. However reports liquid stools since he has been here. Nonbloody. States normally has bowel movements daily. He is empirically on antibiotics appears to be Cipro since his prostate procedure this past Tuesday. I added stool studies for further evaluation. Blood pressure in the room systolic 99. With a lactic acidosis there is a 1.5 L of normal saline ordered bolus. Urine is pending at this time. Denies any cough symptoms. With his hypotension on arrival with lactic acidosis I will discuss with hospital team for admission. 1530: Discussed with Dr. Godwin up the patient's history and findings. He will start meropenem on admission. Stools were obtained however more solid soft per nursing. Urine was in the lab. Lab Data Attestation: I reviewed the patient's lab results. Labs: Laboratory Results - last 24 hr 08/17/21 08/17/21 08/17/21 12:50 12:50 12:50 WBC 13.0 H RBC 3.37 L Hgb 11.8 L Hct 35.5 L MCV 105.3 H MCH 35.0 H MCHC 33.2 RDW Std Deviation 53.0 H RDW Coeff of Thaddeus 13.6 Plt Count 178 MPV 9.8 Immature Gran % (Auto) 0.700 Neut % (Auto) 82.0 H Lymph % (Auto) 11.1 L [place] % (Auto) 5.2 Eos % (Auto) 0.8 Baso % (Auto) 0.2 Absolute Neuts (auto) 10.7 H Absolute Lymphs (auto) 1.44 Nucleated RBC % 0 PT 13.6 INR 1.1 APTT 20.7 L Sodium 140 Potassium 4.5 Chloride 109 H Carbon Dioxide 22.0 Anion Gap 9 BUN 19 H Creatinine 1.91 H Estim Creat Clear Calc 39.59 Est GFR (MDRD) Af Amer 46 L Est GFR (MDRD) Non-Af 38 L BUN/Creatinine Ratio 9.9 L Glucose 214 H Lactic Acid Calcium 8.9 Total Bilirubin 0.40 AST 20 ALT 24 Alkaline Phosphatase 63 Total Protein 6.0 L Albumin 3.3 Globulin 2.7 Albumin/Globulin Ratio 1.2 Lipase 113 Urine Color Urine Clarity Urine pH Ur Specific [place] Urine Protein Urine Glucose (UA) Urine Ketones Urine Occult Blood Urine Nitrite Urine Bilirubin Urine Urobilinogen Ur Leukocyte Esterase Urine RBC Urine WBC Ur Squamous Epith Cells Urine Bacteria Fine Granular Casts Urine Mucus Blood Type Antibody Screen 08/17/21 08/17/21 08/17/21 13:10 13:10 14:50 WBC RBC Hgb Hct MCV MCH MCHC RDW Std Deviation RDW Coeff of Thaddeus Plt Count MPV Immature Gran % (Auto) Neut % (Auto) Lymph % (Auto) [place] % (Auto) Eos % (Auto) Baso % (Auto) Absolute Neuts (auto) Absolute Lymphs (auto) Nucleated RBC % PT INR APTT Sodium Potassium Chloride Carbon Dioxide Anion Gap BUN Creatinine Estim Creat Clear Calc Est GFR (MDRD) Af Amer Est GFR (MDRD) Non-Af BUN/Creatinine Ratio Glucose Lactic Acid 4.9 H* Calcium Total Bilirubin AST ALT Alkaline Phosphatase Total Protein Albumin Globulin Albumin/Globulin Ratio Lipase Urine Color Yellow Urine Clarity Clear Urine pH 5.0 Ur Specific [place] 1.015 Urine Protein 100 H Urine Glucose (UA) Normal Urine Ketones Negative Urine Occult Blood 250 H Urine Nitrite Negative Urine Bilirubin Negative Urine Urobilinogen Normal Ur Leukocyte Esterase 25 H Urine RBC > 100 SEEN Urine WBC 10-25 SEEN Ur Squamous Epith Cells 0 SEEN Urine Bacteria 0 SEEN Fine Granular Casts 0-5 SEEN Urine Mucus 0 SEEN Blood Type A POSITIVE Antibody Screen NEGATIVE Radiography Diagnostic Testing: Clinical Impression(s) from Imaging Studies Chest/Abdomen/Pelvis CT 08/17/21 12:45 IMPRESSION: Chronic interstitial changes in both lung kay with dependent atelectasis. No suspicious solid organ abnormality Nondistended fluid-filled small bowel and large bowel loops throughout all 4 quadrants of the abdomen consistent with diffuse enteritis. Diffuse bladder wall thickening suggests chronic cystitis No free intraperitoneal fluid, air, or suspicious adenopathy Degenerative bony changes Electronically Signed: Sacha Johnson MD at 13:40 EDT , EKG Initial EKG: Attestation: I personally reviewed and interpreted this EKG as follows: Comments: Sinus rate of 64, no ST or T wave changes. Discharge Plan Dx/Rx/DC Orders Clinical Impression: Abdominal pain, Lactic acidosis, Acute on chronic renal insufficiency, Transient hypotension Disposition Disposition: Acute Care Hospital [facility] Discharge Date/Time: 08/17/21 15:39
[2021-08-17 13:20] LABS: ALB/GLOB Ratio 1.2 RATIO (0.9-2.4); AST(SGOT) 20 U/L (15-37); Alanine Aminotransfer ALT/SGPT 24 U/L (16-61); Albumin, Serum 3.3 g/dL (3.2-5.0); Alkaline Phosphatase 63 U/L (45-117); Anion Gap 9 (5-15); BUN 19 mg/dL (7-18); BUN/Creat Ratio 9.9 RATIO (10-20); Calcium,Total 8.9 mg/dL (8.5-10.1); Chloride 109 mmol/L (98-107); Creatinine, Serum 1.91 mg/dL (0.70-1.30); EST Glomerular Filtration Rate 38 mL/min (>60); Est Glom Filt Rate - Afr Amer 46 mL/min (>60); Estimated Creatinine Clearance 39.59 ml/min; Globulin 2.7 g/dL (2.2-4.2); Glucose 214 mg/dL (74-106); Lipase 113 U/L (73-393); Potassium 4.5 mmol/L (3.5-5.1); Sodium Level 140 mmol/L (136-145)
[2021-08-17 13:59] LABS: Lactic Acid 4.9 mmol/L (0.4-1.9)
[2021-08-17] MEDS: 0.9% Normal Saline 1,000 ML 999 ML IV ×2 (14:45→15:23)
[2021-08-17 15:08] LABS: Bacteria 0 SEEN /hpf (None Seen); Mucous, Urine 0 SEEN /hpf (<or=2+); Squamous Epithelial Cells - UA 0 SEEN /hpf (0-5)
[2021-08-17 15:09] LABS: Color, Urine Yellow (Yellow); Glucose, Dipstick Normal (Normal); Ketone-Dipstick Negative (Negative); Leukocyte Esterase-Dipstick 25 /ul (Negative); Nitrite-Dipstick Negative (Negative); Occult Blood-Urine 250 /ul (Negative); Protein-Dipstick 100 mg/dl (Negative); Specific Gravity, Urine 1.015 (1.002-1.030); Urine Bilirubin Dipstick Negative (Negative); Urine Clarity Clear (Clear); Urine Urobilinogen Normal (Normal)
--- NOTE | 2021-08-17 15:19 | PCM.HP.STD ---
Documented by User: BEVERLY Ma 08/17/21 15:45 HPI - General General Date of Admission: 08/17/21 Date of Service: 08/17/21 Chief Complaint: Abdominal pain HPI Narrative TYESHA BATISTA, is a 61 M who presents with complaints of abdominal pain which began approximately 90 minutes before arrival. Patient had a TURP on 08/14/2021 and has been at home since. Patient states that he began having cramping and was concerned not only because he just had a procedure but because he gets constipation frequently. Patient states that he had a bowel movement today and took stool softeners last night and this morning. Patient reports that he also has CML, BPH, hypertension. [facility] Medical History Anxiety Back pain Blister Diverticulitis Former smoker Heartburn History of edema History of stress test History of ulceration Hypertension Leg cramps Leukemia Prostate disease Shortness of breath on exertion Syncope Wears glasses Wears partial dentures Home Medications epinephrine 0.3 mg IM X1 PRN 07/07/21 [History Last Taken Unknown] imatinib 400 mg PO DAILY 07/07/21 [History Last Taken 08/17/21 10:30] lisinopril 20 mg PO DAILY 07/07/21 [History Last Taken 08/17/21 10:00] finasteride 5 mg PO QHS 08/07/21 [History Last Taken 08/16/21 22:00] fluticasone propionate 1 spray INTRANASAL PRN PRN 08/07/21 [History Last Taken Unknown] loratadine [Claritin] 10 mg PO DAILY PRN 08/07/21 [History Last Taken Unknown] ciprofloxacin HCl [Cipro] 500 mg PO BID #10 tab 08/14/21 [Rx Last Taken 08/17/21 10:00] tamsulosin 0.4 mg PO QHS 08/17/21 [History Last Taken 08/16/21 22:00] Allergy/AdvReac Type Severity Reaction Status Date / Time erythromycin lactobionate Allergy Rash Verified 08/17/21 16:08 [From Erythrocin] Penicillins [PCN] Allergy Rash Verified 08/17/21 16:08 Surgical History H/O transurethral resection of prostate History of appendectomy History of partial colectomy History of tonsillectomy and adenoidectomy Hx of colonoscopy Social History Smoking Status: Former smoker ROS Constitutional Constitutional: Reports chills; Denies anorexia, fatigue, fever(s), malaise or weakness Cardiovascular Cardiovascular: Denies chest pain, edema, palpitations or syncope Respiratory/Chest Respiratory/Chest: Denies cough, shortness of breath at rest, shortness of breath with exertion or wheezing Gastrointestinal Gastrointestinal: Reports abdominal pain; Denies constipation, diarrhea, nausea or vomiting Genitourinary Genitourinary: Denies dysuria Musculoskeletal Musculoskeletal: Denies back pain, extremity pain, joint pain or joint stiffness Integumentary Integumentary: Denies dry skin Neurologic Neurologic: Denies abnormal gait, abnormal speech, confusion or dizziness Psychiatric Psychiatric: Reports anxiety; Denies depression Endocrine Endocrinology: Denies change in body appearance Hematologic/Lymphatic Hematologic/Lymphatic: Denies anemia Vital Signs Vital Signs Vital Signs: 08/17/21 12:09 08/17/21 12:16 08/17/21 13:09 Temperature 97.7 F L Temperature Source Axillary Pulse Rate 63 62 Respiratory Rate 22 H 17 Blood Pressure 67/45 L 77/45 L 123/55 H Blood Pressure Mean 52 55 77 Pulse Ox 96 97 Oxygen Delivery Method Room Air Room Air 08/17/21 13:35 08/17/21 15:11 Temperature 97.7 F L Temperature Source Oral Pulse Rate 61 65 Respiratory Rate 15 15 Blood Pressure 123/55 H 101/78 Blood Pressure Mean 77 85 Pulse Ox 99 99 Oxygen Delivery Method Room Air Room Air Weight Weight: 165 lb Body Mass Index (BMI) 24.3 Physical Exam Const alert and oriented x3 General Appearance: cooperative HEENT normocephalic and head/scalp atraumatic Eyes conjunctivae normal and no scleral icterus Neck supple General: trachea midline Resp normal respiratory effort, normal air movement and clear to auscultation bilaterally Cardio regular rate, regular rhythm, S1 normal heart sound, S2 normal heart sound and peripheral pulses 2+ throughout GI normal to inspection, nondistended, normoactive bowel sounds, soft to palpation and non-tender Extremity normal capillary refill and no clubbing, cyanosis or edema General Extremity: no tenderness to palpation of joints or extremities Skin General Skin Exam: no breakdown and turgor normal Lesions: no lesions Rashes: no rashes Neuro no focal motor deficits and no sensory deficits noted Motor Exam: Negative for general weakness Psych cooperative Appearance: appropriate Mood & Affect: anxious Thought Process: normal thought process Results Lab / Micro Data Result Diagrams: 08/17/21 12:50 08/17/21 12:50 Labs: Laboratory Results - last 24 hr 08/17/21 12:50: WBC 13.0 H, RBC 3.37 L, Hgb 11.8 L, Hct 35.5 L, MCV 105.3 H, MCH 35.0 H, MCHC 33.2, RDW Std Deviation 53.0 H, RDW Coeff of Thaddeus 13.6, Plt Count 178, MPV 9.8, Immature Gran % (Auto) 0.700, Neut % (Auto) 82.0 H, Lymph % (Auto) 11.1 L, [place] % (Auto) 5.2, Eos % (Auto) 0.8, Baso % (Auto) 0.2, Absolute Neuts (auto) 10.7 H, Absolute Lymphs (auto) 1.44, Nucleated RBC % 0 08/17/21 12:50: PT 13.6, INR 1.1, APTT 20.7 L 08/17/21 12:50: Sodium 140, Potassium 4.5, Chloride 109 H, Carbon Dioxide 22.0, Anion Gap 9, BUN 19 H, Creatinine 1.91 H, Estim Creat Clear Calc 39.59, Est GFR (MDRD) Af Amer 46 L, Est GFR (MDRD) Non-Af 38 L, BUN/Creatinine Ratio 9.9 L, Glucose 214 H, Calcium 8.9, Total Bilirubin 0.40, AST 20, ALT 24, Alkaline Phosphatase 63, Total Protein 6.0 L, Albumin 3.3, Globulin 2.7, Albumin/Globulin Ratio 1.2, Lipase 113 08/17/21 13:10: Lactic Acid 4.9 H* 08/17/21 13:10: Blood Type A POSITIVE, Antibody Screen NEGATIVE Radiology Impression Chest/Abdomen/Pelvis CT 08/17/21 12:45 IMPRESSION: Chronic interstitial changes in both lung kay with dependent atelectasis. No suspicious solid organ abnormality Nondistended fluid-filled small bowel and large bowel loops throughout all 4 quadrants of the abdomen consistent with diffuse enteritis. Diffuse bladder wall thickening suggests chronic cystitis No free intraperitoneal fluid, air, or suspicious adenopathy Degenerative bony changes Electronically Signed: Sacha Johnson MD at 13:40 EDT , Assessment & Plan Assessment/Plan (1) Enteritis: (2) CML (chronic myeloid leukemia): PLAN: 1. Enteritis -Admit to [facility] -IV Merrem initiated -Blood cultures pending -Enteric pathogen panel and C. difficile pending -Full liquid diet -CBC and BMP ordered daily -Normal saline 125 mL/h ordered -As needed pain medication as well as antiemetics ordered 2. Anxiety -Patient appears to be extremely anxious in ER not currently on medications for anxiety although he does self-report having anxiety and this is listed in his medical history -Xanax 0.5mg x1 ordered 3. Lactic acidosis -Possibly secondary to patient hyperventilating as patient was hyperventilating on arrival and continues to do so in ER -Will repeat lactic acid per protocol -IV normal saline 125 mL/h 4. AC on CKD type IIIa -Patient BUN 19, creatinine 1.91 -Baseline BUN between 1.35 and 1.5 -Normal saline 125 mL/h -BMP daily 5. Leukocytosis -Secondary to CML and is currently on imatinib -We will hold imatinib at this time per the direction of Dr. Meier -CBC daily 6. Hypertension -Vital signs per protocol, currently stable -Continue lisinopril 7. BPH -Patient recently underwent TURP on 08/14/2021 -Continue Flomax and finasteride DVT prophylaxis-SCDs This patient was seen by Jhoana Vargas, IFRAH-C under the supervision of Dr. Godwin. 32 minutes spent in clinical coordination of patient's plan of care. Documented by User: Dr. Guero Godwin, 08/17/21 17:25 HPI - General General Date of Admission: 08/17/21 [facility] Medical History Anxiety Back pain Blister Diverticulitis Former smoker Heartburn History of edema History of stress test History of ulceration Hypertension Leg cramps Leukemia Prostate disease Shortness of breath on exertion Syncope Wears glasses Wears partial dentures Home Medications epinephrine 0.3 mg IM X1 PRN 07/07/21 [History Last Taken Unknown] imatinib 400 mg PO DAILY 07/07/21 [History Last Taken 08/17/21 10:30] lisinopril 20 mg PO DAILY 07/07/21 [History Last Taken 08/17/21 10:00] finasteride 5 mg PO QHS 08/07/21 [History Last Taken 08/16/21 22:00] fluticasone propionate 1 spray INTRANASAL PRN PRN 08/07/21 [History Last Taken Unknown] loratadine [Claritin] 10 mg PO DAILY PRN 08/07/21 [History Last Taken Unknown] ciprofloxacin HCl [Cipro] 500 mg PO BID #10 tab 08/14/21 [Rx Last Taken 08/17/21 10:00] tamsulosin 0.4 mg PO QHS 08/17/21 [History Last Taken 08/16/21 22:00] Allergy/AdvReac Type Severity Reaction Status Date / Time erythromycin lactobionate Allergy Rash Verified 08/17/21 16:08 [From Erythrocin] Penicillins [PCN] Allergy Rash Verified 08/17/21 16:08 Surgical History H/O transurethral resection of prostate History of appendectomy History of partial colectomy History of tonsillectomy and adenoidectomy Hx of colonoscopy Social History Smoking Status: Former smoker Results Lab / Micro Data Result Diagrams: 08/17/21 12:50 08/17/21 12:50 Charges/Coding Addendum Addendum: Seen and examined independently today of Mikayla Vargas, he came to the ER today for evaluation of sudden abdominal cramping, patient states he had loose stools but not diarrhea. Patient denies any fever or chills, patient had a TURP done last week and is currently taking Cipro. Other medical problems include chronic myelocytic leukemia. Work-up in the emergency room showed the patient to have enteritis on his CT scan. Patient's white count was 13,000 but according to his old labs, his white count usually runs a little high. Patient's lactic acid was 4.9, he was hypotensive when he was first seen in the emergency room. Patient's UA showed more than 100 RBCs and 10-25 WBCs-patient did however undergo a TURP last week. On examination he appeared older than his stated age. Vital signs as documented. Skin warm and dry and without overt rashes. Neck without JVD, neck was supple, trachea midline, thyroid was normal. Lungs clear bilaterally, normal air movement was noted. Heart exam notable for regular rhythm, normal sounds and absence of murmurs, rubs or gallops. Abdomen unremarkable and without evidence of organomegaly, masses, or abdominal aortic enlargement. Patient notes mild abdominal tenderness to palpation in all 4 quadrants bowel sounds are present, abdomen is not distended. Extremities nonedematous, no cyanosis was noted, no clubbing was noted. Neuro: Cranial nerves II through XII are grossly intact, no focal motor deficits were noted, sensation to light touch and pinprick intact, motor exam 5/5 throughout. Psych: Patient is alert and oriented x3, his affect is flat Impression #1 acute enteritis-etiology unclear at this point, patient will be placed into observation status on MedSur, he will receive IV fluids and IV antibiotics, labs will be monitored and he will be reevaluated tomorrow. #2 lactic acidosis-probably secondary to hypotension, I do not feel the patient is septic at this time #3 dehydration-patient's creatinine is elevated at 1.91, he will be given fluids and his labs will be rechecked tomorrow #4 chronic kidney disease stage IIIa-labs will be monitored #5 elevated blood glucose-patient has no history of diabetes, I will check an A1c #6 essential hypertension-patient's lisinopril will be held at this time due to his hypotension in the emergency room. I have reviewed Mikayla Vargas's history and physical including her medical assessment and plan of care and with the above additions endorse it. Total clinical time spent by myself addressing patient's medical issues, reviewing the patient's data, and collaborating with the patient's care team: 40 minutes Visit Charges OBSV E&M: [id number] Initial observation care L3
[2021-08-17] MEDS: ALPRAZolam 0.5 MG Tablet PO (15:31)
[2021-08-17 15:32] LABS: Red Blood Cells-Urine > 100 SEEN /hpf (0-5); White Blood Cells 10-25 SEEN /hpf (0-5)
[2021-08-17 15:38] LABS: Fine Granular Cast- Urine 0-5 SEEN /lpf (0-5)
[2021-08-17] MEDS: Morphine 4 MG/ML Syringe IV ×2 (16:17→20:40)
[2021-08-17] MEDS: 0.9% Normal Saline 1,000 ML 125 ML IV (16:19)
[2021-08-17] MEDS: 0.9% Saline Lock 10 ML Syringe IV ×2 (17:06→20:41)
[2021-08-17] MEDS: Tamsulosin HCl 0.4 MG Capsule PO (17:12)
[2021-08-17 17:21] LABS: Reflex Lactate? Y
[2021-08-17] MEDS: oxyCODONE 5 MG Tablet 10 MG PO (18:00)
[2021-08-17 19:01] LABS: Lactic Acid 2.5 mmol/L (0.4-1.9)
[2021-08-17] MEDS: Finasteride 5 MG Tablet PO (23:25)
[2021-08-18] VITALS (10 sets, daily range): BP systolic 106–159; BP diastolic 59–83; PULSE 76–88; RESP 16–18; TEMP 36.6–38.2; O2SAT 94–97
--- NOTE | 2021-08-18 | EGD_PTH ---
PATIENT: TYESHA BATISTA LOC: [facility]3 U#:[id number] AGE/SX: 61/M ROOM: [facility] RE08/17/[address]: Dr. Guero Godwin DO : 1960 BED: 1 DIS: 08/18/2021 SPEC #: [id number] RECD: 08/18/21 10:20 STATUS: THALIA DAHL #: [id number] GILMA: 08/18/21 00:[address]: Chava Cuellar DEPT: SURGICAL PATHOLOGY RECD BY: Froylan Lama ENTERED: 08/19/21 10:21 SP TYPE: EGD BIOPSY OTHR DR: MD Dr. Guero Maurice DO Dr. Rahsaan Friend, DO Tissues: Duodenum, NOS Procedures: Surgery Specimen Level IV Comments: @ Ordering doctor for SUIV edited from to @ by AUSTIN at 08/19/21 1504 @ Submitting doctor edited from to @ by AUSTIN at 08/19/21 1504 HEADER OPERATION: EGD with biopsy (MAC) PRE-OP DIAGNOSIS: Enteritis, chronic myeloid leukemia TISSUE SUBMITTED: Duodenum biopsy MICROSCOPIC DIAGNOSIS Duodenum, biopsy: No pathologic change. AM:helene 08/20/2021 MICROSCOPIC DESCRIPTION Slides are reviewed. GROSS DESCRIPTION Received in fixative is one container labeled with the patient's name and designated duodenum biopsy. The specimen consists of one irregular fragment of light mast soft tissue that measures 0.6 x 0.2 x 0.1 cm. The specimen is totally submitted in one cassette. / AM:helene 08/19/2021 TC:5 CPT: 91247
[2021-08-18] MEDS: 0.9% Normal Saline 1,000 ML 125 ML IV ×3 (00:42→15:01)
[2021-08-18 06:20] LABS: Absolute Lymphocyte Count 1.04 X10^3/uL (0.83-4.51); Basophil# 0.02 X10^3/uL; Basophil% 0.2 % (0-1); Eosinophil# 0.06 X10^3/uL; Eosinophils% 0.6 % (0-5); Hematocrit 28.6 % (40-54); Hemoglobin 9.7 g/dL (13.0-16.5); Lymphocyte # 1.04 X10^3/ul (0.83-4.51); Lymphocyte % 10.5 % (19-41); Mean Corp Hgb Conc 33.9 g/dL (32-36); Mean Corpuscular Hgb 35.4 pg (27.0-32.0); Mean Corpuscular Volume 104.4 fL (80-94); Mean Platelet Vol. 10.3 fl (6.2-12.0); Monocyte# 0.81 X10^3/uL; Monocyte% 8.2 % (0-10); NRBC Flagged by Analyzer 0 % (0-5); Neutrophil # 7.95 X10^3/uL (2.7-7.7); Neutrophil % 80.2 % (47-70); Platelet Count 145 K/mm3 (150-450); RBC Distribution Width CV 14.6 % (11.6-14.6); RBC Distribution Width SD 55.4 fl (35.1-43.9); Red Blood Count 2.74 M/mm3 (4.6-6.2); White Blood Count 9.9 K/mm3 (4.4-11.0)
[2021-08-18 06:44] LABS: Anion Gap 6 (5-15); BUN 19 mg/dL (7-18); BUN/Creat Ratio 16.8 RATIO (10-20); Calcium,Total 7.3 mg/dL (8.5-10.1); Chloride 113 mmol/L (98-107); Creatinine, Serum 1.13 mg/dL (0.70-1.30); EST Glomerular Filtration Rate 70 mL/min (>60); Est Glom Filt Rate - Afr Amer 84 mL/min (>60); Estimated Creatinine Clearance 66.91 ml/min; Glucose 123 mg/dL (74-106); Potassium 3.9 mmol/L (3.5-5.1); Sodium Level 141 mmol/L (136-145)
[2021-08-18] MEDS: Acetaminophen 325 MG Tablet 650 MG PO (07:50)
[2021-08-18] MEDS: oxyCODONE 5 MG Tablet 10 MG PO (07:50)
[2021-08-18 10:25] LABS: Hemoglobin A1c 5.5 % (3.8-5.6)
[2021-08-18 12:05] LABS: Hematocrit 31.6 % (40-54); Hemoglobin 10.4 g/dL (13.0-16.5)
--- NOTE | 2021-08-18 12:48 | PCM.PN.HOSP ---
Documented by User: BRUCE MaC 08/18/21 12:53 Subjective Subjective Patient seen and examined. Patient states that he is still having tenderness and dull pain in his abdomen but it has improved since presentation. Patient hemoglobin down to 9.7 will recheck at noon. Discussed with patient and he is amenable to plan. Objective Data Objective Data Vital Signs: Vital Signs Temp Pulse Resp BP Pulse Ox 98.3 F 83 16 136/65 H 94 08/18/21 07:30 08/18/21 07:30 08/18/21 07:30 08/18/21 07:30 08/18/21 07:30 Oxygen Flow Rate (L/min) 2 Oxygen Delivery Method Room Air Weight: 173 lb 4.533 oz Body Mass Index (BMI) 25.5 Intake & Output: Intake and Output for Last 24 Hours 08/16/21 08/17/21 08/18/21 23:59 23:59 23:59 Intake Total 3522 / 3522 2495 / 2495 Output Total 600 / 600 200 / 200 Balance 2922 / 2922 2295 / 2295 Lab / Micro Data Result Diagrams: 08/18/21 11:55 08/18/21 05:45 Labs: Laboratory Results - last 24 hr 08/17/21 12:50: WBC 13.0 H, RBC 3.37 L, Hgb 11.8 L, Hct 35.5 L, MCV 105.3 H, MCH 35.0 H, MCHC 33.2, RDW Std Deviation 53.0 H, RDW Coeff of Thaddeus 13.6, Plt Count 178, MPV 9.8, Immature Gran % (Auto) 0.700, Neut % (Auto) 82.0 H, Lymph % (Auto) 11.1 L, [place] % (Auto) 5.2, Eos % (Auto) 0.8, Baso % (Auto) 0.2, Absolute Neuts (auto) 10.7 H, Absolute Lymphs (auto) 1.44, Nucleated RBC % 0 08/17/21 12:50: PT 13.6, INR 1.1, APTT 20.7 L 08/17/21 12:50: Sodium 140, Potassium 4.5, Chloride 109 H, Carbon Dioxide 22.0, Anion Gap 9, BUN 19 H, Creatinine 1.91 H, Estim Creat Clear Calc 39.59, Est GFR (MDRD) Af Amer 46 L, Est GFR (MDRD) Non-Af 38 L, BUN/Creatinine Ratio 9.9 L, Glucose 214 H, Calcium 8.9, Total Bilirubin 0.40, AST 20, ALT 24, Alkaline Phosphatase 63, Total Protein 6.0 L, Albumin 3.3, Globulin 2.7, Albumin/Globulin Ratio 1.2, Lipase 113 08/17/21 13:10: Lactic Acid 4.9 H* 08/17/21 13:10: Blood Type A POSITIVE, Antibody Screen NEGATIVE 08/17/21 14:50: Urine Color Yellow, Urine Clarity Clear, Urine pH 5.0, Ur Specific [place] 1.015, Urine Protein 100 H, Urine Glucose (UA) Normal, Urine Ketones Negative, Urine Occult Blood 250 H, Urine Nitrite Negative, Urine Bilirubin Negative, Urine Urobilinogen Normal, Ur Leukocyte Esterase 25 H, Urine RBC > 100 SEEN, Urine WBC 10-25 SEEN, Ur Squamous Epith Cells 0 SEEN, Urine Bacteria 0 SEEN, Fine Granular Casts 0-5 SEEN, Urine Mucus 0 SEEN 08/17/21 18:00: Lactic Acid 2.5 H* 08/18/21 05:45: WBC 9.9, RBC 2.74 L, Hgb 9.7 L, Hct 28.6 L, MCV 104.4 H, MCH 35.4 H, MCHC 33.9, RDW Std Deviation 55.4 H, RDW Coeff of Thaddeus 14.6, Plt Count 145 L, MPV 10.3, Immature Gran % (Auto) 0.300, Neut % (Auto) 80.2 H, Lymph % (Auto) 10.5 L, [place] % (Auto) 8.2, Eos % (Auto) 0.6, Baso % (Auto) 0.2, Absolute Neuts (auto) 8.0 H, Absolute Lymphs (auto) 1.04, Nucleated RBC % 0 08/18/21 05:45: Sodium 141, Potassium 3.9, Chloride 113 H, Carbon Dioxide 22.0, Anion Gap 6, BUN 19 H, Creatinine 1.13, Estim Creat Clear Calc 66.91, Est GFR (MDRD) Af Amer 84, Est GFR (MDRD) Non-Af 70, BUN/Creatinine Ratio 16.8, Glucose 123 H, Calcium 7.3 L 08/18/21 05:45: Hemoglobin A1c 5.5 08/18/21 11:55: Hgb 10.4 L, Hct 31.6 L Micro: Microbiology 08/17/21 14:50 Urine, Clean Catch Urine Culture - Preliminary Culture exhibits no growth. 08/17/21 15:00 Stool Enteric Bacteriology - Final 08/17/21 15:00 Stool C. difficile DNA Amplification - Final Radiography Diagnostic Testing: Radiology Impression Chest/Abdomen/Pelvis CT 08/17/21 12:45 IMPRESSION: Chronic interstitial changes in both lung kay with dependent atelectasis. No suspicious solid organ abnormality Nondistended fluid-filled small bowel and large bowel loops throughout all 4 quadrants of the abdomen consistent with diffuse enteritis. Diffuse bladder wall thickening suggests chronic cystitis No free intraperitoneal fluid, air, or suspicious adenopathy Degenerative bony changes Electronically Signed: Sacha Johnson MD at 13:40 EDT Reading Location ID and State: [address] [place] [address] , Service support , Physical Exam Const alert and oriented x3 General Appearance: cooperative HEENT normocephalic and head/scalp atraumatic Eyes conjunctivae normal and no scleral icterus Neck supple General: trachea midline Resp normal respiratory effort, normal air movement and clear to auscultation bilaterally Cardio regular rate, regular rhythm, S1 normal heart sound, S2 normal heart sound and peripheral pulses 2+ throughout GI normal to inspection, nondistended, normoactive bowel sounds and soft to palpation Palpation: tender epigastric Extremity normal capillary refill and no clubbing, cyanosis or edema General Extremity: no tenderness to palpation of joints or extremities Skin General Skin Exam: no breakdown and turgor normal Lesions: no lesions Rashes: no rashes Neuro no focal motor deficits and no sensory deficits noted Motor Exam: Negative for general weakness Psych cooperative Appearance: appropriate Mood & Affect: flat affect Thought Process: normal thought process Assessment & Plan Assessment/Plan (1) Enteritis: (2) CML (chronic myeloid leukemia): PLAN: 1. Enteritis -Continue IV Merrem -Blood cultures pending -Enteric pathogen panel and C. difficile negative -N.p.o. pending EGD with Dr. Cuellar -CBC and BMP ordered daily -Normal saline 125 mL/h ordered -As needed pain medication as well as antiemetics ordered 2. Anxiety -Patient much less anxious today. 3. Lactic acidosis -Improved upon repeat yesterday -IV normal saline 125 mL/h 4. AC on CKD type IIIa -Improved, BUN 19, creatinine 1.13 -Baseline BUN between 1.35 and 1.5 -Normal saline 125 mL/h -BMP daily 5. Leukocytosis -Secondary to CML and is currently on imatinib -We will hold imatinib at this time per the direction of Dr. Meier -CBC daily 6. Hypertension -Vital signs per protocol, currently stable -Continue lisinopril 7. BPH -Patient recently underwent TURP on 08/14/2021 -Continue Flomax and finasteride DVT prophylaxis-SCDs This patient was seen by Jhoana Vargas NP-C under the supervision of Dr. Godwin. 14 minutes spent in clinical coordination of patient's plan of care. Documented by User: Dr. Guero Godwin DO 08/22/21 18:13 Objective Data Lab / Micro Data Result Diagrams: 08/18/21 11:55 08/18/21 05:45
[2021-08-18] MEDS: Lactated Ringers 1,000 ML 15 ML IV (15:40)
--- NOTE | 2021-08-18 17:04 | CON.PCM_ITS ---
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 He also has an increased MCV decreased platelet count and anemia possibly secondary to bone marrow involvement from his CML. Also given diagnosis would be ulcerative disease affecting the small bowel. This could be secondary to low flow state from ischemia although will be very unlikely at that level due to the amount of anastomosis. He should undergo an upper endoscopy to evaluate his upper GI tract. He was explained alternatives, risk, benefits including outstanding bleeding, infection, sepsis, perforation, need for emergent surgery . Have an ASA of 3. HPI Consult Data Date of Consult: 08/18/21 HPI Narrative HPI Narrative: TYESHA BATISTA, is a 61 M who presented by EMS sudden onset of significant abdominal pain 90 minutes prior to arrival. His friend is currently present states he got called and patient called into the house stating severe pain. States he cannot move due to pain. He had a prostate procedure this past Tuesday by Dr. Leija. History of CML and hypertension. Reports partial colectomy in the past. Patient was on the commode trying to have a bowel movement when pain started. He did have a bowel movement. Nonbloody. No previous similar symptoms in the past. No other abdominal surgeries. He had a CT scan of the abdomen pelvis that is shown here is mild inflammation seen surrounding the transverse duodenum. There is fatty infiltration seen in the neck of the pancreas. There is no discrete fluid collection identified. No stomach or bowel distention. No focal inflammatory change. [facility] Medical History Anxiety Back pain Blister Diverticulitis Former smoker Heartburn History of edema History of stress test History of ulceration Hypertension Leg cramps Leukemia Prostate disease Shortness of breath on exertion Syncope Wears glasses Wears partial dentures Home Medications epinephrine 0.3 mg IM X1 PRN 07/07/21 [History Last Taken Unknown] imatinib 400 mg PO DAILY 07/07/21 [History Last Taken 08/17/21 10:30] lisinopril 20 mg PO DAILY 07/07/21 [History Last Taken 08/17/21 10:00] finasteride 5 mg PO QHS 08/07/21 [History Last Taken 08/16/21 22:00] fluticasone propionate 1 spray INTRANASAL PRN PRN 08/07/21 [History Last Taken Unknown] loratadine [Claritin] 10 mg PO DAILY PRN 08/07/21 [History Last Taken Unknown] ciprofloxacin HCl [Cipro] 500 mg PO BID #10 tab 08/14/21 [Rx Last Taken 08/17/21 10:00] tamsulosin 0.4 mg PO QHS 08/17/21 [History Last Taken 08/16/21 22:00] Allergy/AdvReac Type Severity Reaction Status Date / Time erythromycin lactobionate Allergy Rash Verified 08/17/21 16:08 [From Erythrocin] Penicillins [PCN] Allergy Rash Verified 08/17/21 16:08 Surgical History H/O transurethral resection of prostate History of appendectomy History of partial colectomy History of tonsillectomy and adenoidectomy Hx of colonoscopy Social History Smoking Status: Former smoker ROS Gastrointestinal Gastrointestinal: Reports abdominal pain Physical Exam Const alert General Appearance: cooperative Orientation / Consciousness: oriented to person HEENT hearing grossly normal bilaterally Head and Scalp: normal to inspection Face and Sinus: face symmetric Nose: external nose normal Mouth: oral and palatal mucosa normal Eyes conjunctivae normal General Eye: normal appearance of both eyes Neck full ROM General: normal visual inspection Lymph Lymphatic: no lymphadenopathy noted Chest inspection of chest normal and palpation of chest normal Chest: symmetrical chest wall rise Resp normal respiratory effort Effort and Inspection: able to speak in complete sentences Cardio regular rate GI non-distended Percussion: normal to percussion Rectal Exam: deferred Neuro Speech: speech normal Gait (Neuro): normal gait Lab / Micro Data Result Diagrams: 08/18/21 11:55 08/18/21 05:45 Labs: Laboratory Results - last 24 hr 08/17/21 18:00: Lactic Acid 2.5 H* 08/18/21 05:45: WBC 9.9, RBC 2.74 L, Hgb 9.7 L, Hct 28.6 L, MCV 104.4 H, MCH 35.4 H, MCHC 33.9, RDW Std Deviation 55.4 H, RDW Coeff of Thaddeus 14.6, Plt Count 145 L, MPV 10.3, Immature Gran % (Auto) 0.300, Neut % (Auto) 80.2 H, Lymph % (Auto) 10.5 L, [place] % (Auto) 8.2, Eos % (Auto) 0.6, Baso % (Auto) 0.2, Absolute Neuts (auto) 8.0 H, Absolute Lymphs (auto) 1.04, Nucleated RBC % 0 08/18/21 05:45: Sodium 141, Potassium 3.9, Chloride 113 H, Carbon Dioxide 22.0, Anion Gap 6, BUN 19 H, Creatinine 1.13, Estim Creat Clear Calc 66.91, Est GFR (MDRD) Af Amer 84, Est GFR (MDRD) Non-Af 70, BUN/Creatinine Ratio 16.8, Glucose 123 H, Calcium 7.3 L 08/18/21 05:45: Hemoglobin A1c 5.5 08/18/21 11:55: Hgb 10.4 L, Hct 31.6 L Micro: Microbiology 08/17/21 14:50 Urine, Clean Catch Urine Culture - Preliminary Culture exhibits no growth. 08/17/21 15:00 Stool Enteric Bacteriology - Final 08/17/21 15:00 Stool C. difficile DNA Amplification - Final Charges/Coding Visit Charges Inpatient E&M: 07647 Init Hosp L2
--- NOTE | 2021-08-18 17:35 | OP.EGD_ITS ---
Patient Name: Jignesh Noel Procedure Date: 08/18/2021 4:58 PM Date of : 1960 Age: 61 Procedure: Upper GI endoscopy Indications: Epigastric abdominal pain, Iron deficiency anemia Providers: Chava Cuellar DO Medicines: Monitored Anesthesia Care Patient Profile: This is a 61 year old male. Refer to note in patient chart for documentation of history and physical. Patient has symptoms of acute abdominal cramping. Complications: No immediate complications. Procedure: Pre-Anesthesia Assessment: - Prior to the procedure, a History and Physical was performed, and patient medications and allergies were reviewed. The risks and benefits of the procedure and the sedation options and risks were discussed with the patient. All questions were answered and informed consent was obtained. Patient identification and proposed procedure were verified by the physician in the pre-procedure area. Mental Status Examination: alert and oriented. Airway Examination: normal oropharyngeal airway and neck mobility. Respiratory Examination: clear to auscultation. CV Examination: normal. Prophylactic Antibiotics: The patient does not require prophylactic antibiotics. Prior Anticoagulants: The patient has taken no previous anticoagulant or antiplatelet agents. After reviewing the risks and benefits, the patient was deemed in satisfactory condition to undergo the procedure. The anesthesia plan was to use moderate sedation / analgesia (conscious sedation). Immediately prior to administration of medications, the patient was re-assessed for adequacy to receive sedatives. The heart rate, respiratory rate, oxygen saturations, blood pressure, adequacy of pulmonary ventilation, and response to care were monitored throughout the procedure. The physical status of the patient was re-assessed after the procedure. After obtaining informed consent, the endoscope was passed under direct vision. Throughout the procedure, the patient's blood pressure, pulse, and oxygen saturations were monitored continuously. The Colonoscope was introduced through the mouth, and advanced to the fourth part of duodenum. The upper GI endoscopy was accomplished without difficulty. The patient tolerated the procedure well. Scope In: 5:16:21 PM Scope Out: 5:23:58 PM Total Procedure Duration Time 0 hours 7 minutes 37 seconds Findings: The examined esophagus was normal, except for mild bile esophagitis The entire examined stomach was normal, except for mild bile gastritis. Patchy mildly erythematous mucosa without active bleeding and with no stigmata of bleeding was found in the fourth portion of the duodenum. Biopsies were taken with a cold forceps for histology. Verification of patient identification for the specimen was done. Estimated blood loss was minimal. Aspirates were taken for the duodenum for cultures. Impression: - Normal esophagus. - Normal stomach. - Erythematous duodenopathy. Biopsied. Recommendation: - Discharge patient to home. - Resume previous diet. - Continue present medications. - Await pathology results and await cultures. Procedure Code(s): --- Professional --- 02037, Esophagogastroduodenoscopy, flexible, transoral; with biopsy, single or multiple CPT copyright 2017 [employer]. All rights reserved. The codes documented in this report are preliminary and upon cup trimming machine operator review may be revised to meet current compliance requirements. Chava Cuellar DO 08/18/2021 5:34:32 PM This report has been signed electronically. Number of Addenda: 1 Note Initiated On: 08/18/2021 4:58 PM Addendum Number: 1 Addendum Date: 12/18/2021 6:06:25 AM MAC was used as sedation for this procedure. Chava Cuellar DO 12/18/2021 6:06:33 AM This report has been signed electronically.
--- NOTE | 2021-08-18 17:36 | OP.CCLET_ITS ---
12/18/2021 Guero Marie [address] [place] [address] Re : Upper GI endoscopy procedure for Jignesh Noel Dear Dr. Marie This procedure was performed on Wednesday, August 18, 2021. My impressions and recommendations are as follows: Impressions : - Normal esophagus. - Normal stomach. - Erythematous duodenopathy. Biopsied. Recommendations : - Discharge patient to home. - Resume previous diet. - Continue present medications. - Await pathology results and await cultures. My findings are described in the full procedure note, which is enclosed. If I can be of further assistance, please feel free to contact me at . Sincerely, Chava Cuellar, 08/18/2021 5:34:32 PM This report has been signed electronically.
--- NOTE | 2021-08-18 18:23 | PCM.DC ---
Discharge Instructions Diet Discharge Diet: No restrictions Activity Discharge Activity: Return to Normal Activity Dressing / Incision Call your doctor if you observe: Inability to have a bowel movement and Uncontrolled pain Follow Up Care Please Follow Up With: Chava Cuellar DO When: 2 weeks Test Results: Test results from this visit will be discussed in further detail at your follow-up appointment, if applicable. Discharge Plan Admission Admit Date/Time: 08/17/21 15:06 Primary Reason for Your Visit: Abdominal Pain, AC Attending Provider: Guero Godwin Primary Care Provider: Guero Marie Consulting Providers: Chava Cuellar Discharge Orders/Prescriptions Prescriptions: Continued lisinopril 20 mg tablet 20 mg PO DAILY RF: 0 epinephrine 0.3 mg/0.3 mL auto-injector 0.3 mg IM X1 PRN (Reason: Anaphylaxis) RF: 0 imatinib 400 mg tablet 400 mg PO DAILY RF: 0 fluticasone propionate 50 mcg/actuation [place],Suspension 1 spray INTRANASAL PRN PRN (Reason: ALLERGIES) RF: 0 finasteride 5 mg Tablet 5 mg PO QHS RF: 0 loratadine [Claritin] 10 mg Tablet 10 mg PO DAILY PRN (Reason: ALLERGIES) RF: 0 tamsulosin 0.4 mg Capsule 0.4 mg PO QHS RF: 0 Discontinued ciprofloxacin HCl [Cipro] 500 mg tablet 500 mg PO BID Qty: 10 RF: 0 Referrals / Follow Up: Guero Marie MD [Primary Care Provider] - Disposition Disposition (needs filled in before D/C Order can be placed): Home, Self Care
--- NOTE | 2021-08-18 18:28 | PCM.DC.SUM ---
Documented by User: BEVERLY Ma 08/18/21 18:34 Providers Date of Admission: 08/17/21 Date of Discharge: 08/18/21 Primary Care Physician: Dr. Guero Marie MD Reason For Visit: ENTERITIS Diagnosis Discharge Diagnosis (1) Enteritis: Status: Acute Code(s): K52.9 - Noninfective gastroenteritis and colitis, unspecified Medications at Discharge Home Medications epinephrine 0.3 mg IM X1 PRN 07/07/21 imatinib 400 mg PO DAILY 07/07/21 lisinopril 20 mg PO DAILY 07/07/21 finasteride 5 mg PO QHS 08/07/21 fluticasone propionate 1 spray INTRANASAL PRN PRN 08/07/21 loratadine [Claritin] 10 mg PO DAILY PRN 08/07/21 tamsulosin 0.4 mg PO QHS 08/17/21 pantoprazole 40 mg PO DAILY #30 tab 08/18/21 Hospital Course Operations None Procedures EGD Summary of Care Provided Minutes Spent on Discharge: 35 Hospital Course: Patient is a 61-year-old male who originally presented with abdominal pain. Patient denied any blood in his stool however nurses noted blood in his stool during his admission. Patient was seen by Dr. Cuellar who performed an EGD which showed duodenopathy and was biopsied. Patient will be sent home on pantoprazole with instructions to follow-up with Dr. Cuellar in 2 weeks. Patient's hemoglobin trended.11 0.8-9.7-10.4. Patient instructed to monitor his stool for blood. Physical Exam Const alert and oriented x3 General Appearance: cooperative HEENT normocephalic and head/scalp atraumatic Eyes conjunctivae normal and no scleral icterus Neck supple General: trachea midline Resp normal respiratory effort, normal air movement and clear to auscultation bilaterally Cardio regular rate, regular rhythm, S1 normal heart sound, S2 normal heart sound and peripheral pulses 2+ throughout GI normal to inspection, nondistended, normoactive bowel sounds and soft to palpation Palpation: tender epigastric Extremity normal capillary refill and no clubbing, cyanosis or edema General Extremity: no tenderness to palpation of joints or extremities Skin General Skin Exam: no breakdown and turgor normal Lesions: no lesions Rashes: no rashes Neuro no focal motor deficits and no sensory deficits noted Motor Exam: Negative for general weakness Psych cooperative Appearance: appropriate Mood & Affect: flat affect Thought Process: normal thought process Weight / BMI Weight Weight: 173 lb 4.533 oz Body Mass Index (BMI) 25.5 ABG / Lab / Microbiology Data Result Diagrams: 08/18/21 11:55 08/18/21 05:45 Laboratory: Laboratory Results - last 24 hr 08/17/21 18:00: Lactic Acid 2.5 H* 08/18/21 05:45: WBC 9.9, RBC 2.74 L, Hgb 9.7 L, Hct 28.6 L, MCV 104.4 H, MCH 35.4 H, MCHC 33.9, RDW Std Deviation 55.4 H, RDW Coeff of Thaddeus 14.6, Plt Count 145 L, MPV 10.3, Immature Gran % (Auto) 0.300, Neut % (Auto) 80.2 H, Lymph % (Auto) 10.5 L, [place] % (Auto) 8.2, Eos % (Auto) 0.6, Baso % (Auto) 0.2, Absolute Neuts (auto) 8.0 H, Absolute Lymphs (auto) 1.04, Nucleated RBC % 0 08/18/21 05:45: Sodium 141, Potassium 3.9, Chloride 113 H, Carbon Dioxide 22.0, Anion Gap 6, BUN 19 H, Creatinine 1.13, Estim Creat Clear Calc 66.91, Est GFR (MDRD) Af Amer 84, Est GFR (MDRD) Non-Af 70, BUN/Creatinine Ratio 16.8, Glucose 123 H, Calcium 7.3 L 08/18/21 05:45: Hemoglobin A1c 5.5 08/18/21 11:55: Hgb 10.4 L, Hct 31.6 L Microbiology: Microbiology 08/17/21 14:50 Urine, Clean Catch Urine Culture - Preliminary Culture exhibits no growth. 08/17/21 15:00 Stool Enteric Bacteriology - Final 08/17/21 15:00 Stool C. difficile DNA Amplification - Final D/C Instructions Discharge Diet: No restrictions Call your doctor if you observe: Inability to have a bowel movement and Uncontrolled pain Please Follow Up With: Friend,Chava, DO When: 2 weeks Meaningful Use Info Meaningful Use Diagnoses (Choose all that apply): None applicable Discharge Plan Admission Admit Date/Time: 08/17/21 15:06 Primary Reason for Your Visit: Abdominal Pain, AC Attending Provider: Guero Godwin Primary Care Provider: Guero Marie Consulting Providers: FriendChava Discharge Orders/Prescriptions Prescriptions: New pantoprazole 40 mg tablet,delayed release (DR/EC) 40 mg PO DAILY Qty: 30 RF: 0 Continued lisinopril 20 mg tablet 20 mg PO DAILY RF: 0 epinephrine 0.3 mg/0.3 mL auto-injector 0.3 mg IM X1 PRN (Reason: Anaphylaxis) RF: 0 imatinib 400 mg tablet 400 mg PO DAILY RF: 0 fluticasone propionate 50 mcg/actuation [place],Suspension 1 spray INTRANASAL PRN PRN (Reason: ALLERGIES) RF: 0 finasteride 5 mg Tablet 5 mg PO QHS RF: 0 loratadine [Claritin] 10 mg Tablet 10 mg PO DAILY PRN (Reason: ALLERGIES) RF: 0 tamsulosin 0.4 mg Capsule 0.4 mg PO QHS RF: 0 Discontinued ciprofloxacin HCl [Cipro] 500 mg tablet 500 mg PO BID Qty: 10 RF: 0 Referrals / Follow Up: Guero Marie MD [Primary Care Provider] - Disposition Disposition (needs filled in before D/C Order can be placed): Home, Self Care Documented by User: Dr. Guero Godwin DO 08/18/21 19:27 Providers Date of Admission: 08/17/21 Reason For Visit: ENTERITIS Medications at Discharge Home Medications epinephrine 0.3 mg IM X1 PRN 07/07/21 imatinib 400 mg PO DAILY 07/07/21 lisinopril 20 mg PO DAILY 07/07/21 finasteride 5 mg PO QHS 08/07/21 fluticasone propionate 1 spray INTRANASAL PRN PRN 08/07/21 loratadine [Claritin] 10 mg PO DAILY PRN 08/07/21 tamsulosin 0.4 mg PO QHS 08/17/21 pantoprazole 40 mg PO DAILY #30 tab 08/18/21 ABG / Lab / Microbiology Data Result Diagrams: 08/18/21 11:55 08/18/21 05:45 Discharge Plan Admission Admit Date/Time: 08/17/21 15:06 Primary Reason for Your Visit: Abdominal Pain, AC Attending Provider: Guero Godwin Primary Care Provider: Guero Marie Consulting Providers: Friend,Chava Discharge Orders/Prescriptions Prescriptions: New pantoprazole 40 mg tablet,delayed release (DR/EC) 40 mg PO DAILY Qty: 30 RF: 0 Continued lisinopril 20 mg tablet 20 mg PO DAILY RF: 0 epinephrine 0.3 mg/0.3 mL auto-injector 0.3 mg IM X1 PRN (Reason: Anaphylaxis) RF: 0 imatinib 400 mg tablet 400 mg PO DAILY RF: 0 fluticasone propionate 50 mcg/actuation [place],Suspension 1 spray INTRANASAL PRN PRN (Reason: ALLERGIES) RF: 0 finasteride 5 mg Tablet 5 mg PO QHS RF: 0 loratadine [Claritin] 10 mg Tablet 10 mg PO DAILY PRN (Reason: ALLERGIES) RF: 0 tamsulosin 0.4 mg Capsule 0.4 mg PO QHS RF: 0 Discontinued ciprofloxacin HCl [Cipro] 500 mg tablet 500 mg PO BID Qty: 10 RF: 0 Referrals / Follow Up: Guero Marie MD [Primary Care Provider] - Disposition Disposition (needs filled in before D/C Order can be placed): Home, Self Care Charges/Coding Addendum Addendum: Patient was seen and examined independently of Mikayla Vargas today, he underwent an upper endoscopy which showed some irritation of his duodenum-there is no obvious ulceration noted, I talked with gastroenterology and they stated they did not feel the patient had enteritis-gastroenterology is of the opinion he might have ischemic colitis but gastroenterology is unsure of this. Patient did have some slight rectal bleeding today. On examination he appeared in good health and spirits. Vital signs as documented. Skin warm and dry and without overt rashes. Neck without JVD, neck was supple, trachea midline, thyroid was normal. Lungs clear bilaterally, normal air movement was noted. Heart exam notable for regular rhythm, normal sounds and absence of murmurs, rubs or gallops. Abdomen unremarkable and without evidence of organomegaly, masses, or abdominal aortic enlargement. Bowel sounds are present, abdomen is not distended. Extremities nonedematous, no cyanosis was noted, no clubbing was noted. Neuro: Cranial nerves II through XII are grossly intact, no focal motor deficits were noted, sensation to light touch and pinprick intact, motor exam 5/5 throughout. Psych: Patient is alert and oriented x3, he does not appear anxious or depressed, he does not appear agitated. Impression: #1 abdominal pain-etiology unclear #2 acute kidney injury-resolved #3 bright red rectal bleeding-etiology unclear #4 chronic myeloid leukemia #5 essential hypertension Patient will follow-up with gastroenterology in 2 weeks, I told the patient that he needs to undergo a colonoscopy due to his rectal bleeding. Patient's significant other was in the room during the time of my examination and understands this also. I have reviewed Mikayla Vargas's discharge summary including her medical assessment and plan of care and with the above additions endorse it. Visit Charges OBSV E&M: 74147 Observation care discharge
[2021-08-18] MEDS: Tamsulosin HCl 0.4 MG Capsule PO (18:35)
== END 2021-08-18 21:00 | disposition home or self-care (01) ==
LOC: ED 13:18 → MS3 17:48
PROVIDERS: Internal Medicine Gastroenterology; Nurse Practitioner Family; Admitting Provider Internal Medicine; Emergency Provider Emergency Medicine; PCP Family Medicine; Visit Provider Internal Medicine
PROC: 0DJ08ZZ Inspection of Upper Intestinal Tract, Via Natural or Artificial Opening Endoscopic (ICD-10-PCS; CPT 43235; principal; 2021-08-18 16:55)
DX: K52.9 Noninfective gastroenteritis and colitis, unspecified (principal); C92.10 Chronic myeloid leukemia, BCR/ABL-positive, not having achieved remission; N17.9 Acute kidney failure, unspecified; N18.31 Chronic kidney disease, stage 3a; I12.9 Hypertensive chronic kidney disease with stage 1 through stage 4 chronic kidney disease, or unspecified chronic kidney disease; E87.2 Acidosis; R73.9 Hyperglycemia, unspecified; D50.9 Iron deficiency anemia, unspecified; Z87.891 Personal history of nicotine dependence; K62.5 Hemorrhage of anus and rectum; Z79.899 Other long term (current) drug therapy; Z87.19 Personal history of other diseases of the digestive system; N40.0 Benign prostatic hyperplasia without lower urinary tract symptoms; F41.9 Anxiety disorder, unspecified
CPT/HCPCS: 43239; 36415; 71260; 74177; 80048; 80053; 81001; 83036; 83605; 83690; 85014; 85018; 85025; 85610; 85730; 86850; 86900; 86901; 87040; 87070; 87075; 87077; 87086; 87186; 87205; 87493; 87506; 88305; 93005; 96361; 96365; 96366; 96375; 96376; 99218; 99285; J2185; J7030; J7050; J7120; Q9967; A4216; G0378; J2405

== ENCOUNTER → 2021-08-31 | Outpatient (CLI) | payer OTHER, SELFPAY | END | disposition home or self-care (01) | LOC: LABSPEC 16:35 | PROVIDERS: PCP Family Medicine; Visit Provider Urology | DX: R31.29 Other microscopic hematuria (principal) | CPT/HCPCS: 87086 ==

== ENCOUNTER → 2021-12-29 | Outpatient (CLI) | payer OTHER, SELFPAY ==
[2021-12-29 12:39] LABS: PSA,Total - Annual Screen 1.61 ng/mL (0.00-4.00)
== END | disposition home or self-care (01) ==
LOC: LAB 11:10
PROVIDERS: PCP Family Medicine; Referring Provider Urology; Visit Provider Urology
DX: Z12.5 Encounter for screening for malignant neoplasm of prostate (principal)
CPT/HCPCS: 36415; 84153; G0103

== ENCOUNTER 2022-12-06 14:08 | Emergency (ER) | payer OTHER, SELFPAY ==
[2022-12-06 14:10] VITALS: BP 147/80; PULSE 98; RESP 18; TEMP 36.7; O2SAT 96; BMI 24.3
--- NOTE | 2022-12-06 14:24 | CT_ITS ---
STUDY: CT ABDOMEN AND PELVIS WITH CONTRAST REASON FOR EXAM: Male, 62 years old. LLQ abdominal pain, diarrhea today, dry heaves, hypertension, CML. RADIATION DOSAGE (If Supplied By Facility): CTDIvol = ( 9.42 ) mGy, DLP = ( 651.13 ) mGycm TECHNIQUE: Transaxial images were obtained from the dome of the diaphragm to the symphysis pubis without oral contrast. IV 100mL Isovue-370 was administered. Sagittal and coronal images were reconstructed. Individualized dose optimization techniques were used for this CT. COMPARISON: Comparison is made with prior study dated July 07, 2021. FINDINGS: The visualized lung bases are unremarkable. The visualized portions of the heart are within normal limits. There is decreased attenuation of the liver consistent with steatosis. Normal gallbladder and extrahepatic biliary system. Normal spleen. Normal pancreas. Normal bilateral adrenal glands. Normal right kidney. Normal left kidney. Normal visualized stomach. Mild degree of mural thickening of small bowel loops in the right mid abdomen. Surgical anastomosis seen in the colorectal junction. The appendix is visualized and appears normal. There is scattered atherosclerotic calcification of the abdominal aorta, without a demonstrated aneurysm. Normal inferior vena cava. There is borderline retroperitoneal lymphadenopathy with enlarged nodes no greater than 10mm in the short axis diameter. Distended urinary bladder. There is a small umbilical hernia containing fat. Normal osseous structures. CT/Abdomen/Pelvis W IV Cont ONLY IMPRESSION: Fatty infiltration of the liver. Distended urinary bladder. Mild degree of the wall thickening of small bowel loops in the right mid abdomen. Electronically Signed: Donald Biggs MD at 15:36 EDT ,
--- NOTE | 2022-12-06 14:26 | EDS_ITS ---
HPI <GEORGIA Callaway - Last Filed: 12/06/22 18:12> History of Present Illness Chief Complaint: Abd Pain Narrative Narrative: Patient presenting today due to periumbilical abdominal pain that started around 6 AM this morning. He reports a history of diverticulitis and thinks that this may feel similar. He has been nauseous and dry heaving but denies any vomiting. He has had several episodes of loose stool that looked black in appearance, he denies any history of GI bleed. He feels chilled but denies fever. PMH leukemia and hypertension. He is currently receiving chemotherapy with Gleevec. He denies any urinary symptoms. Previous abdominal surgeries include appendectomy and having a portion of his intestine removed due to rupture. PFS <GEORGIA Callaway - Last Filed: 12/06/22 18:12> [facility] Medical History Anxiety Back pain Blister Diverticulitis Former smoker Heartburn History of edema History of stress test History of ulceration Hypertension Leg cramps Leukemia Prostate disease Shortness of breath on exertion Syncope Wears glasses Wears partial dentures Home Medications epinephrine 0.3 mg/0.3 mL injection, auto-injector 0.3 mg IM X1 PRN Anaphylaxis 07/07/21 [History Last Taken Unknown] imatinib 400 mg tablet 400 mg PO DAILY cancer 07/07/21 [History Last Taken 08/17/21 10:30] lisinopril 20 mg tablet 20 mg PO DAILY blood pressure 07/07/21 [History Last Taken 08/17/21 10:00] finasteride 5 mg tablet 5 mg PO QHS 08/07/21 [History Last Taken 08/16/21 22:00] fluticasone propionate 50 mcg/actuation nasal spray,suspension 1 spray intranasal PRN PRN ALLERGIES 08/07/21 [History Last Taken Unknown] loratadine 10 mg tablet (Claritin) 10 mg PO DAILY PRN ALLERGIES 08/07/21 [History Last Taken Unknown] tamsulosin 0.4 mg capsule 0.4 mg PO QHS prostate 08/17/21 [History Last Taken 08/16/21 22:00] pantoprazole 40 mg tablet,delayed release 40 mg PO DAILY #30 tabs 08/18/21 [Rx Last Taken Unknown] ondansetron 4 mg disintegrating tablet 4 mg PO Q8H PRN PRN Nausea #10 tabs 12/06/22 [Rx Last Taken Unknown] Allergy/AdvReac Type Severity Reaction Status Date / Time erythromycin lactobionate Allergy Rash Verified 12/06/22 14:10 [From Erythrocin] Penicillins [PCN] Allergy Rash Verified 12/06/22 14:10 Surgical History H/O transurethral resection of prostate History of appendectomy History of partial colectomy History of tonsillectomy and adenoidectomy Hx of colonoscopy Social History Smoking Status: Former smoker ROS <GEORGIA Callaway - Last Filed: 12/06/22 18:12> ROS ED Constitutional Constitutional ED: Denies chills or fever(s) Cardiovascular Cardiovascular: Denies chest pain Respiratory/Chest Respiratory/Chest: Denies cough or dyspnea Gastrointestinal Gastrointestinal: Reports abdominal pain, diarrhea and nausea; Denies constipation or vomiting Genitourinary Genitourinary ED: Denies dysuria, hematuria or urinary frequency Musculoskeletal Musculoskeletal: Denies arthralgias or myalgias Integumentary Denies rash Neurologic Neurologic: Denies weakness EXAM <GEORGIA Callaway - Last Filed: 12/06/22 18:12> Physical Exam Const Vital Signs: 12/06/22 14:10 12/06/22 16:51 Temperature 98.1 F Temperature Source Temporal Pulse Rate 98 Respiratory Rate 18 18 Blood Pressure 147/80 H Blood Pressure Mean 102 Pulse Ox 96 Oxygen Delivery Method Room Air Room Air Positive well nourished, well developed and no apparent distress General Appearance ED: well developed HEENT Reports normocephalic and head/scalp atraumatic Mouth ED: Yes moist mucous membranes normal Eyes PERRL and EOMs intact bilaterally Neck full ROM and supple Chest Wall inspection of chest normal Resp normal respiratory effort and clear to auscultation bilaterally Cardio regular rate and regular rhythm GI soft to palpation, non-distended and no masses GI Narrative: Left lower quadrant tenderness to palpation without any rigidity, guarding, or rebound tenderness. On rectal examination, no external hemorrhoids, normal rectal tone, brown stool. Back/Spine normal ROM and normal to inspection Extremity normal to inspection and full ROM Neuro oriented x3, CN's II-XII intact bilaterally, moves all extremities, no focal motor deficits and no sensory deficits noted Sensorium / Orientation: awake and alert Psych mental status grossly normal and thought process normal Skin no rashes or lesions noted and no wounds <Dr. Razia Parrish DO - Last Filed: 12/09/22 15:02> Physical Exam Const Vital Signs: 12/06/22 14:10 12/06/22 16:51 Temperature 98.1 F Temperature Source Temporal Pulse Rate 98 Respiratory Rate 18 18 Blood Pressure 147/80 H Blood Pressure Mean 102 Pulse Ox 96 Oxygen Delivery Method Room Air Room Air MDM <GEORGIA Callawya - Last Filed: 12/06/22 18:12> [facility] MDM Narrative Medical decision making narrative: Patient presenting due to periumbilical abdominal pain and diarrhea that started this morning. He is nontoxic-appearing, vitals are unremarkable. He feels chilled but he is afebrile. He does have tenderness to palpation to the left lower quadrant. He thought that his stool looked black in appearance earlier today, stool occult blood test will be obtained. Stool is brown on rectal exam. He has been given IV fluids, pain control, and Zofran. Labs will be obtained to rule out leukocytosis, anemia, electrolyte abnormality, AC, UTI, and hepatobiliary etiology. CT of the abdomen and pelvis will be obtained to rule out diverticulitis, colitis, bowel obstruction, and other etiology. Patient does have an L of PE at 15.5, slightly elevated BUN and creatinine. On reexamination he reports improvement of his symptoms and is eating crackers and drinking caity tayler. CT scan shows small bowel thickening, this was discussed with Dr. Bonilla. He recommends symptomatic control with Zofran and making sure patient remains well-hydrated. He is to follow-up with either Dr. Cuellar or Dr. Bonilla due to the positive stool occult test so that a scope can be performed. He does not have any anemia that would require emergent intervention or blood transfusion. He will be discharged home in stable condition and is comfortable with plan. He has been given return instructions. Lab Data Attestation: I reviewed the patient's lab results. Lab results narrative: WBC 18.5, 130 creatinine 1.6, GFR 46 Labs: Laboratory Results - last 24 hr 12/06/22 12/06/22 14:25 16:00 WBC 15.5 H RBC 4.04 L Hgb 14.5 Hct 41.8 MCV 103.5 H MCH 35.9 H MCHC 34.7 RDW Std Deviation 51.8 H RDW Coeff of Thaddeus 13.4 Plt Count 230 MPV 9.6 Immature Gran % (Auto) 0.400 Neut % (Auto) 96.0 H Lymph % (Auto) 0.9 L Pepin % (Auto) 2.4 Eos % (Auto) 0.1 Baso % (Auto) 0.2 Absolute Neuts (auto) 14.9 H Absolute Lymphs (auto) 0.14 L Nucleated RBC % 0 Sodium 139 Potassium 4.5 Chloride 107 Carbon Dioxide 25.0 Anion Gap 7 BUN 32 H Creatinine 1.61 H Estim Creat Clear Calc 46.35 Est GFR (MDRD) Af Amer 56 L Est GFR (MDRD) Non-Af 46 L BUN/Creatinine Ratio 19.9 Glucose 154 H Calcium 8.9 Total Bilirubin 0.60 AST 22 ALT 28 Alkaline Phosphatase 68 Total Protein 6.9 Albumin 3.9 Globulin 3.0 Albumin/Globulin Ratio 1.3 Lipase 27 Urine Color Yellow Urine Clarity Sl. Cloudy Urine pH 5.0 Ur Specific [place] 1.010 Urine Protein Negative Urine Glucose (UA) Normal Urine Ketones Negative Urine Occult Blood 10 H Urine Nitrite Negative Urine Bilirubin Negative Urine Urobilinogen Normal Ur Leukocyte Esterase Negative Urine RBC 0-5 SEEN Urine WBC 0 SEEN Ur Squamous Epith Cells 0-5 SEEN Urine Bacteria 0 SEEN Urine Mucus 0 SEEN Radiography Diagnostic Testing: Clinical Impression(s) from Imaging Studies Abdomen/Pelvis CT 12/06/22 14:24 IMPRESSION: Fatty infiltration of the liver. Distended urinary bladder. Mild degree of the wall thickening of small bowel loops in the right mid abdomen. Electronically Signed: Donald Biggs MD at 15:36 EDT , <Dr. Razia Parrish, DO - Last Filed: 12/09/22 15:02> [facility] Narrative Medical decision making narrative: Patient presenting due to periumbilical abdominal pain and diarrhea that started this morning. He is nontoxic-appearing, vitals are unremarkable. He feels chilled but he is afebrile. He does have tenderness to palpation to the left lower quadrant. He thought that his stool looked black in appearance earlier today, stool occult blood test will be obtained. Stool is brown on rectal exam. He has been given IV fluids, pain control, and Zofran. Labs will be obtained to rule out leukocytosis, anemia, electrolyte abnormality, AC, UTI, and hepatobiliary etiology. CT of the abdomen and pelvis will be obtained to rule out diverticulitis, colitis, bowel obstruction, and other etiology. Patient does have an L of PE at 15.5, slightly elevated BUN and creatinine. On reexamination he reports improvement of his symptoms and is eating crackers and drinking caity tayler. CT scan shows small bowel thickening, this was discussed with Dr. Bonilla. He recommends symptomatic control with Zofran and making sure patient remains well-hydrated. He is to follow-up with either Dr. Cuellar or Dr. Bonilla due to the positive stool occult test so that a scope can be performed. He does not have any anemia that would require emergent intervention or blood transfusion. He will be discharged home in stable condition and is comfortable with plan. He has been given return instructions. I have personally performed a face to face assessment of the patient and have reviewed the KWASI Note. I performed a substantive portion of the visit including all aspects of the following. My alarcon findings include: History is patient is a 62-year-old male with history of CML presenting with abdominal pain, dry heaves and diarrhea. Pain is periumbilical. Mom evaluated the patient after MAP DRAFTER and after he had received him some morphine, Zofran and IV fluids. He states he was feeling much better at this time. He does have a mild leukocytosis of 15.5 and a mild elevation of his creatinine 1.61 however this creatinine appears to be close to his baseline. His abdomen is soft and nontender on my evaluation. He is tolerating p.o. CT of the abdomen pelvis obtained which shows some small bowel thickening. I discussed this case with surgery given his leukocytosis and felt like more than likely this is an enteritis. This does fit his clinical picture. He is occult positive in his stool and feels that he will need outpatient follow-up for likely colonoscopy. He is not anemic and I do not think he requires admission for an occult GI bleed. He does not have intractable symptoms. At this time I do not have an obvious source of bacterial infection I do not think antibiotics are needed. He is unable to provide a stool sample in the emergency room. Patient is given return precautions to be discharged home with prescription for Zofran for symptom control. He verbalizes agreement understand this plan. Other additions or changes: [None] Lab Data Labs: Laboratory Results - last 24 hr 12/06/22 12/06/22 14:25 16:00 WBC 15.5 H RBC 4.04 L Hgb 14.5 Hct 41.8 MCV 103.5 H MCH 35.9 H MCHC 34.7 RDW Std Deviation 51.8 H RDW Coeff of Thaddeus 13.4 Plt Count 230 MPV 9.6 Immature Gran % (Auto) 0.400 Neut % (Auto) 96.0 H Lymph % (Auto) 0.9 L Pepin % (Auto) 2.4 Eos % (Auto) 0.1 Baso % (Auto) 0.2 Absolute Neuts (auto) 14.9 H Absolute Lymphs (auto) 0.14 L Nucleated RBC % 0 Sodium 139 Potassium 4.5 Chloride 107 Carbon Dioxide 25.0 Anion Gap 7 BUN 32 H Creatinine 1.61 H Estim Creat Clear Calc 46.35 Est GFR (MDRD) Af Amer 56 L Est GFR (MDRD) Non-Af 46 L BUN/Creatinine Ratio 19.9 Glucose 154 H Calcium 8.9 Total Bilirubin 0.60 AST 22 ALT 28 Alkaline Phosphatase 68 Total Protein 6.9 Albumin 3.9 Globulin 3.0 Albumin/Globulin Ratio 1.3 Lipase 27 Urine Color Yellow Urine Clarity Sl. Cloudy Urine pH 5.0 Ur Specific [place] 1.010 Urine Protein Negative Urine Glucose (UA) Normal Urine Ketones Negative Urine Occult Blood 10 H Urine Nitrite Negative Urine Bilirubin Negative Urine Urobilinogen Normal Ur Leukocyte Esterase Negative Urine RBC 0-5 SEEN Urine WBC 0 SEEN Ur Squamous Epith Cells 0-5 SEEN Urine Bacteria 0 SEEN Urine Mucus 0 SEEN Radiography Diagnostic Testing: Clinical Impression(s) from Imaging Studies Abdomen/Pelvis CT 12/06/22 14:24 IMPRESSION: Fatty infiltration of the liver. Distended urinary bladder. Mild degree of the wall thickening of small bowel loops in the right mid abdomen. Electronically Signed: Donald Biggs MD at 15:36 EDT , Discharge Plan Triage Chief Complaint: Abd Pain ED Midlevel Provider: Yennifer William ED Provider: Razia Parrish Dx/Rx/DC Orders Clinical Impression: Abdominal pain, Dehydration Instructions: Abdominal Pain Prescriptions: New ondansetron 4 mg tablet,disintegrating 4 mg PO Q8H PRN PRN (Reason: Nausea) Qty: 10 0RF No Action lisinopril 20 mg tablet 20 mg PO DAILY Patient Comments: TAKE 1 TABLET BY MOUTH EVERY DAY epinephrine 0.3 mg/0.3 mL auto-injector 0.3 mg IM X1 PRN (Reason: Anaphylaxis) Patient Comments: INJECT 0.3 ML INTRAMUSCULARLY NEEDED. imatinib 400 mg tablet 400 mg PO DAILY fluticasone propionate 50 mcg/actuation [place],Suspension 1 spray INTRANASAL PRN PRN (Reason: ALLERGIES) finasteride 5 mg Tablet 5 mg PO QHS loratadine [Claritin] 10 mg Tablet 10 mg PO DAILY PRN (Reason: ALLERGIES) tamsulosin 0.4 mg Capsule 0.4 mg PO QHS pantoprazole 40 mg tablet,delayed release (DR/EC) 40 mg PO DAILY Qty: 30 0RF Primary Care Provider: Guero Marie Referrals: Ed Bonilla MD [Med Staff - Active Staff] - As Needed Guero Marie MD [Primary Care Provider] - Chava Cuellar DO [Med Staff - Active Staff] - 5-7 Days Activity Restrictions/Additional Instructions: Please follow-up with Dr. Cuellar, if you cannot get in with him you can follow- up with Dr. Bonilla. Please return for any worsening of your symptoms. Disposition Disposition: Home, Self Care Discharge Date/Time: 12/06/22 17:20
[2022-12-06] MEDS: 0.9% Normal Saline (1000mL) 1,000 ML 1000 ML IV (14:30)
[2022-12-06] MEDS: Morphine 4 MG/ML Syringe IV (14:30)
[2022-12-06] MEDS: Ondansetron 4 MG/2 ML Vial IV (14:30)
[2022-12-06 14:31] LABS: Absolute Lymphocyte Count 0.14 X10^3/uL (0.83-4.51); Absolute Neutrophil Count 14.9 X10^3/uL (2.0-7.7); Basophil# 0.03 X10^3/uL; Basophil% 0.2 % (0-1); Eosinophil# 0.01 X10^3/uL; Eosinophils% 0.1 % (0-5); Hematocrit 41.8 % (40-54); Hemoglobin 14.5 g/dL (13.0-16.5); Lymphocyte # 0.14 X10^3/ul (0.83-4.51); Lymphocyte % 0.9 % (19-41); Mean Corp Hgb Conc 34.7 g/dL (32-36); Mean Corpuscular Hgb 35.9 pg (27.0-32.0); Mean Corpuscular Volume 103.5 fL (80-94); Mean Platelet Vol. 9.6 fl (6.2-12.0); Monocyte# 0.38 X10^3/uL; Monocyte% 2.4 % (0-10); NRBC Flagged by Analyzer 0 % (0-5); POSITIVE DIFFERENTIAL YES; Platelet Count 230 K/mm3 (150-450); RBC Distribution Width CV 13.4 % (11.6-14.6); RBC Distribution Width SD 51.8 fl (35.1-43.9); Red Blood Count 4.04 M/mm3 (4.6-6.2); White Blood Count 15.5 K/mm3 (4.4-11.0)
[2022-12-06 14:32] LABS: Differential Indicated SCAN CRITERIA MET
[2022-12-06 14:51] LABS: ALB/GLOB Ratio 1.3 RATIO (0.9-2.4); AST(SGOT) 22 U/L (15-37); Alanine Aminotransfer ALT/SGPT 28 U/L (16-61); Albumin, Serum 3.9 g/dL (3.2-5.0); Alkaline Phosphatase 68 U/L (45-117); Anion Gap 7 (5-15); BUN 32 mg/dL (7-18); BUN/Creat Ratio 19.9 RATIO (10-20); Calcium,Total 8.9 mg/dL (8.5-10.1); Chloride 107 mmol/L (98-107); Creatinine, Serum 1.61 mg/dL (0.70-1.30); EST Glomerular Filtration Rate 46 mL/min (>60); Est Glom Filt Rate - Afr Amer 56 mL/min (>60); Estimated Creatinine Clearance 46.35 ml/min; Glucose 154 mg/dL (74-106); Lipase 27 U/L (13-75); Potassium 4.5 mmol/L (3.5-5.1); Protein, Total 6.9 g/dL (6.4-8.2); Sodium Level 139 mmol/L (136-145)
[2022-12-06 16:02] LABS: Bacteria 0 SEEN /hpf (None Seen); Mucous, Urine 0 SEEN /hpf (<or=2+); White Blood Cells 0 SEEN /hpf (0-5)
[2022-12-06 16:08] LABS: Color, Urine Yellow (Yellow); Glucose, Dipstick Normal (Normal); Ketone-Dipstick Negative (Negative); Leukocyte Esterase-Dipstick Negative /ul (Negative); Nitrite-Dipstick Negative (Negative); Occult Blood-Urine 10 /ul (Negative); Protein-Dipstick Negative (Negative); Urine Bilirubin Dipstick Negative (Negative); Urine Clarity Sl. Cloudy (Clear); Urine Urobilinogen Normal (Normal)
[2022-12-06 16:51] VITALS: RESP 18
[2022-12-06 16:55] LABS: Red Blood Cells-Urine 0-5 SEEN /hpf (0-5); Squamous Epithelial Cells - UA 0-5 SEEN /hpf (0-5)
== END 2022-12-06 17:20 | disposition home or self-care (01) ==
PROVIDERS: Physician Assistant; Emergency Provider Emergency Medicine; PCP Family Medicine; Visit Provider Emergency Medicine
DX: R10.33 Periumbilical pain (principal); C95.90 Leukemia, unspecified not having achieved remission; E86.0 Dehydration; I10 Essential (primary) hypertension; Z79.899 Other long term (current) drug therapy; Z87.891 Personal history of nicotine dependence
CPT/HCPCS: 74177; 80053; 81001; 82274; 83690; 85025; 96361; 96374; 96375; 99283; Q9967; J2405

== ENCOUNTER 2025-03-19 10:28 | Emergency (ER) | payer MEDICARE, SELFPAY ==
[2025-03-19] VITALS (7 sets, daily range): BP systolic 113–202; BP diastolic 64–102; PULSE 46–69; RESP 16; TEMP 36.4; O2SAT 98–100; BMI 23.6
--- NOTE | 2025-03-19 10:38 | EKG12_ITS ---
Test Reason : CP Blood Pressure : */* mmHG Vent. Rate : 65 BPM Atrial Rate : 65 BPM P-R Int : 130 ms QRS Dur : 76 ms QT Int : 380 ms P-R-T Axes : 52 0 54 degrees QTcB Int : 395 ms Normal sinus rhythm Possible Left atrial enlargement Borderline ECG Confirmed by Óscar Medrano ([id number]), market editor CAROLYN HERNADEZ ([id number]) on 03/25/2025 8:36:19 AM Referred By: TB/BB Confirmed By: Óscar Medrano
--- NOTE | 2025-03-19 10:42 | EDS_ITS ---
HPI History of Present Illness Chief Complaint: Chest Pain Narrative Narrative: Patient is a 64-year-old male with past medical history of anxiety, lymphoma in remission, hypertension who presents to the emergency department the chief complaint of chest pain and not feeling his normal self. He states that his pain has been going on on and off since Tuesday and states that nothing particularly makes this better or worse. He states that he tries to take his blood pressure daily when he wakes up he notes that his blood pressure was elevated this morning to the 150s. He states that he thought that if he took a shower and tried to relax his symptoms were improved. He states that after the shower he checked his blood pressure was still elevated and noted that since he was not feeling well overall came here to be further evaluated. Patient denies any recent travel history denies any history of blood clots. He states that he did take his daily antihypertensive. [facility] Medical History Wears glasses Wears partial dentures Anxiety Blister Prostate disease Back pain Syncope Heartburn History of ulceration Former smoker Shortness of breath on exertion Leg cramps History of edema History of stress test Diverticulitis Hypertension Leukemia Home Medications Medication Instructions Recorded Last Taken Type epinephrine 0.3 mg/0.3 mL 0.3 mg IM X1 PRN Anaphylaxis 07/07/21 Unknown History injection, auto-injector imatinib 400 mg tablet 400 mg PO DAILY cancer 07/0708/17/21 10:30 History lisinopril 20 mg tablet 20 mg PO DAILY blood pressur e 07/07/21 08/17/21 10:00 History finasteride 5 mg tablet 5 mg PO QHS 08/07/21 2 22:00 History fluticasone propionate 50 1 spray intranasal PRN PRN 0 08/07/21 Unknown History mcg/actuation nasal ALLERGIES spray,suspension loratadine 10 mg tablet (Claritin) 10 mg PO DAILY PRN ALLERGIES 08/07/21 Unknown History tamsulosin 0.4 mg capsule 0.4 mg PO QHS prostate 08/1708/16/21 22:00 History pantoprazole 40 mg tablet,delayed 40 mg PO DAILY #30 t abs 08/18/21 Unknown Rx release ondansetron 4 mg disintegrating 4 mg PO Q8H PRN PRN Na usea #10 tabs 12/06/22 Unknown Rx tablet lisinopril 30 mg tablet 30 mg PO DAILY 03/19/25 Unkn own History Allergy/AdvReac Type Severity Reaction Status Date / Time erythromycin lactobionate Allergy Rash Verified 03/19/25 10:33 (From Erythrocin) Penicillins (PCN) Allergy Rash Verified 03/19/25 10:33 Surgical History H/O transurethral resection of prostate Hx of colonoscopy History of appendectomy History of tonsillectomy and adenoidectomy History of partial colectomy Social History Smoking Status: Former smoker ROS ROS ED ROS Narrative Constitutional: Denies any fevers, chills, headaches Eyes: Denies double vision blurry vision changes vision Cardiovascular: Complains of left-sided chest discomfort as noted above denies palpitations Respiratory: Denies coughing wheezing shortness of breath Abdomen: Denies abdominal pain nausea vomit diarrhea : Denies urinary symptoms Neurological: Denies numbness, discomfort going Musculoskeletal: Denies back pain Skin: Denies any rashes or lesions EXAM Physical Exam Narrative Exam Narrative: General: Patient lying in bed rest comfortably appear to be in acute distress Head: Atraumatic, normocephalic Eyes: PERRL bilaterally, EOMI bilaterally, no conjunctival injection noted Neck: Soft, supple, trachea midline Cardiovascular: Regular rate and rhythm Respiratory: Clear to auscultation bilaterally Abdomen: Soft, nondistended, tender to palpation Extremities: Radial pulses +2/4 in the bilateral extremities, +5/5 strength noted in the bilateral upper and lower extremities, no pedal edema on exam Neurological: Patient following commands knew that he was at [facility] year is 2024 Skin: Warm, dry, intact no rashes or lesions noted Const Vital Signs: 03/19/25 10:30 Temperature 97.5 F L Temperature Source Temporal Pulse Rate 69 Respiratory Rate 16 Blood Pressure 202/87 H Blood Pressure Mean 125 Pulse Ox 100 Oxygen Delivery Method Room Air MDM MDM MDM Narrative Medical decision making narrative: Patient is a 64-year-old male who presented to the emergency department with a chief complaint of chest pain that once again has been going off and on since Tuesday with nothing making it better or worse in particular. On the differential diagnosis includes but to hypertensive emergency, ACS, anxiety. Once workup is obtained reviewed he will be reevaluated. Discharge Plan Triage Chief Complaint: Chest Pain ED Provider: Eric Chan Dx/Rx/DC Orders Prescriptions: No Action lisinopril 20 mg tablet 20 mg PO DAILY Patient Comments: TAKE 1 TABLET BY MOUTH EVERY DAY epinephrine 0.3 mg/0.3 mL auto-injector 0.3 mg IM X1 PRN (Reason: Anaphylaxis) Patient Comments: INJECT 0.3 ML INTRAMUSCULARLY NEEDED. imatinib 400 mg tablet 400 mg PO DAILY fluticasone propionate 50 mcg/actuation [place],Suspension 1 spray INTRANASAL PRN PRN (Reason: ALLERGIES) finasteride 5 mg Tablet 5 mg PO QHS loratadine [Claritin] 10 mg Tablet 10 mg PO DAILY PRN (Reason: ALLERGIES) tamsulosin 0.4 mg Capsule 0.4 mg PO QHS pantoprazole 40 mg tablet,delayed release (DR/EC) 40 mg PO DAILY Qty: 30 0RF ondansetron 4 mg tablet,disintegrating 4 mg PO Q8H PRN PRN (Reason: Nausea) Qty: 10 0RF lisinopril 30 mg tablet 30 mg PO DAILY Primary Care Provider: Guero Marie Referrals: Guero Marie MD [Primary Care Provider, Family Practice] Print Language: [place]
--- NOTE | 2025-03-19 10:42 | ED.VIS.CHEST ---
HPI History of Present Illness Chief Complaint: Chest Pain Narrative Narrative: Patient is a 64-year-old male with past medical history of anxiety, lymphoma in remission, hypertension who presents to the emergency department the chief complaint of chest pain and not feeling his normal self. He states that his pain has been going on on and off since Tuesday and states that nothing particularly makes this better or worse. He states that he tries to take his blood pressure daily when he wakes up he notes that his blood pressure was elevated this morning to the 150s. He states that he thought that if he took a shower and tried to relax his symptoms were improved. He states that after the shower he checked his blood pressure was still elevated and noted that since he was not feeling well overall came here to be further evaluated. Patient denies any recent travel history denies any history of blood clots. He states that he did take his daily antihypertensive. [facility] Medical History (Updated 03/19/25 @ 15:[address] Eric Chan DO) Chest pain Wears glasses Wears partial dentures Anxiety Blister Prostate disease Back pain Syncope Heartburn History of ulceration Former smoker Shortness of breath on exertion Leg cramps History of edema History of stress test Diverticulitis Hypertension Leukemia Home Medications Medication Instructions Recorded Last Taken Type lisinopril 30 mg tablet 30 mg PO DAILY 03/19/25 03/19/25 History Allergy/AdvReac Type Severity Reaction Status Date / Time erythromycin lactobionate Allergy Rash Verified 03/19/25 10:33 (From Erythrocin) Penicillins (PCN) Allergy Rash Verified 03/19/25 10:33 Surgical History H/O transurethral resection of prostate Hx of colonoscopy History of appendectomy History of tonsillectomy and adenoidectomy History of partial colectomy Social History Smoking Status: Former smoker ROS ROS ED ROS Narrative Constitutional: Denies any fevers, chills, headaches Eyes: Denies double vision blurry vision changes vision Cardiovascular: Complains of left-sided chest discomfort as noted above denies palpitations Respiratory: Denies coughing wheezing shortness of breath Abdomen: Denies abdominal pain nausea vomit diarrhea : Denies urinary symptoms Neurological: Denies numbness, discomfort going Musculoskeletal: Denies back pain Skin: Denies any rashes or lesions EXAM Physical Exam Narrative Exam Narrative: General: Patient lying in bed rest comfortably appear to be in acute distress Head: Atraumatic, normocephalic Eyes: PERRL bilaterally, EOMI bilaterally, no conjunctival injection noted Neck: Soft, supple, trachea midline Cardiovascular: Regular rate and rhythm Respiratory: Clear to auscultation bilaterally Abdomen: Soft, nondistended, tender to palpation Extremities: Radial pulses +2/4 in the bilateral extremities, +5/5 strength noted in the bilateral upper and lower extremities, no pedal edema on exam Neurological: Patient following commands knew that he was at [facility] year is 2024 Skin: Warm, dry, intact no rashes or lesions noted Const Vital Signs: 03/19/25 10:30 03/19/25 11:12 03/19/25 12:00 Temperature 97.5 F L Temperature Source Temporal Pulse Rate 69 56 L Respiratory Rate 16 16 Blood Pressure 202/87 H 200/102 H 163/84 H Blood Pressure Mean 125 134 110 Pulse Ox 100 99 Oxygen Delivery Method Room Air 03/19/25 13:00 03/19/25 14:00 03/19/25 14:00 Temperature Temperature Source Pulse Rate 56 L 48 L 51 L Respiratory Rate 16 16 16 Blood Pressure 113/67 118/64 118/64 Blood Pressure Mean 82 82 80 Pulse Ox 99 98 99 Oxygen Delivery Method Room Air 03/19/25 15:00 Temperature Temperature Source Pulse Rate 46 L Respiratory Rate 16 Blood Pressure Blood Pressure Mean Pulse Ox 99 Oxygen Delivery Method MDM MDM MDM Narrative Medical decision making narrative: Patient is a 64-year-old male who presented to the emergency department with a chief complaint of chest pain that once again has been going off and on since Tuesday with nothing making it better or worse in particular. On the differential diagnosis includes but to hypertensive emergency, ACS, anxiety. Once workup is obtained reviewed he will be reevaluated. Patient's CBC reviewed and showed a white blood count of 8.4, heme was 14.5, plate count 259. Patient sodium was 141, potassium normal at 4.3, creatinine was noted to be at 1.27 he has underlying chronic kidney disease according to previous blood draws. Patient troponin was 16 with a delta of 21 EKG reviewed showed sinus rhythm with a rate of 65 bpm with DC interval 130. Patient's EKG from August 17, 2021 was reviewed as well and is largely unchanged. Patient's chest x-ray reviewed myself by radiology showed no acute cardiopulmonary processes. Discussed case with on-call linux engineer Dr. Medrano who came down and evaluated the patient and states the patient can follow-up in the outpatient setting. Patient was advised to keep a close eye in his blood pressure and return with worsening symptoms or any concerns. Will order stress test in the outpatient setting for the patient. He is agreeable with this plan all questions answered is discharged home in stable condition Lab Data Labs: Laboratory Results - last 24 hr 03/19/25 03/19/25 10:47 12:45 WBC 8.4 RBC 4.31 L Hgb 14.5 Hct 41.6 MCV 96.5 H MCH 33.6 H MCHC 34.9 RDW Std Deviation 46.5 H RDW Coeff of Thaddeus 12.9 Plt Count 259 MPV 9.6 Immature Gran % (Auto) 0.700 Neut % (Auto) 72.6 H Lymph % (Auto) 17.2 L [place] % (Auto) 7.9 Eos % (Auto) 1.0 Baso % (Auto) 0.6 Absolute Neuts (auto) 6.1 Absolute Lymphs (auto) 1.44 Nucleated RBC % 0 Sodium 141 Potassium 4.3 Chloride 107 H Carbon Dioxide 23.7 Anion Gap 10 BUN 23 H Creatinine 1.27 H Estim Creat Clear Calc 57.22 Est GFR (MDRD) Non-Af 62 BUN/Creatinine Ratio 18.3 Glucose 127 H Calcium 9.6 Troponin T High Sens 16 Troponin T Hi Sens 2 Hr 21 Radiography Diagnostic Testing: Clinical Impression(s) from Imaging Studies Chest X-Ray 03/19/25 11:12 IMPRESSION: NO ACUTE FINDINGS. Reading Location: [facility] Discharge Plan Triage Chief Complaint: Chest Pain ED Provider: Eric Chan Dx/Rx/DC Orders Clinical Impression: Hypertension, Chest pain, History of anxiety Prescriptions: No Action lisinopril 30 mg tablet 30 mg PO DAILY Other Ambulatory Orders: Stress Test Echo W/Contrast (Routine) Facility: [facility] - Location: [facility] Ordered By: Dr. Eric Chan Primary Care Provider: Lázaro Ortiz Referrals: Guero Marie MD [Non-Staff, Family Practice] Activity Restrictions/Additional Instructions: Follow-up your doctors in outpatient setting. Obtain stress test in outpatient setting. Take blood pressure medication as prescribed. Keep blood pressure log by randomly checking your blood pressure 2-3 times a day write this down and take this for your physicians review. Return with worsening symptoms or other concerns Print Language: [place]i Disposition Disposition: Home, Self Care
[2025-03-19 10:55] LABS: Hematocrit 41.6 % (40-54); Hemoglobin 14.5 g/dL (13.0-16.5); Immature Granulocytes Count 0.060 X10^3/uL (0.0-0.0); Mean Corp Hgb Conc 34.9 g/dL (32-36); Mean Corpuscular Volume 96.5 fL (80-94); Mean Platelet Vol. 9.6 fl (6.2-12.0); NRBC Flagged by Analyzer 0 % (0-5); Platelet Count 259 K/mm3 (150-450); RBC Distribution Width CV 12.9 % (11.6-14.6); RBC Distribution Width SD 46.5 fl (35.1-43.9); Red Blood Count 4.31 M/mm3 (4.6-6.2); White Blood Count 8.4 K/mm3 (4.4-11.0)
--- NOTE | 2025-03-19 11:12 | RAD_ITS ---
PROCEDURE: CHEST PA AND LATERAL 03/19/2025 REASON FOR EXAM: Chest pain since Tuesday. Diaphoretic. Patient stated they have felt a little dizzy. TECHNIQUE: Procedure Code: RADCXR Modality: DX Procedure: CHEST PA AND LATERAL COMPARISON: None. FINDINGS: LUNGS AND PLEURA: No focal airspace consolidation. No pleural effusion or pneumothorax. HEART AND MEDIASTINUM: The heart size and mediastinal contours are normal. BONES: No acute osseous abnormality. RAD/Chest PA and Lateral IMPRESSION: NO ACUTE FINDINGS. Reading Location: [id number]
[2025-03-19 11:13] LABS: Anion Gap 10 (7-18); BUN 23 mg/dL (4-19); BUN/Creat Ratio 18.3 RATIO (10-20); Calcium,Total 9.6 mg/dL (7.6-11.0); Carbon Dioxide 23.7 mmol/L (20.0-29.0); Chloride 107 mmol/L (96-106); Estimated Creatinine Clearance 57.22 ml/min (50-250); Glucose 127 mg/dL (70-99); Potassium 4.3 mmol/L (3.5-5.1); Troponin T High Sensitivity 16 ng/L (<=22)
[2025-03-19 13:27] LABS: Troponin T High Sens 2 HR 21 ng/L (<=22)
--- NOTE | 2025-03-19 14:54 | CON.PCM.CA_ITS ---
Assessment & Plan Assessment/Plan (1) Chest pain: PLAN: -HST: 16-->21, EKG negative for acute ischemic changes (nonexertional chest pain lasting hours prior to arrival, and patient with chest pain during workup including EKG) - Chest pain is reproducible on examination, and worsens with palpation at the bedside - Suspect musculoskeletal chest pain, low concern for cardiac chest pain at this time in light of negative workup PLAN: Plan - No further cardiac testing indicated at this time - Control of hypertension per ED team HPI Consult Data Date of Consult: 03/19/25 HPI Narrative Reason for Consultation: Chest pain HPI Narrative: TYESHA BATISTA, is a 64 M with no significant past medical history who presents with complaints of chest pain. HST: 16-->21, EKG negative for acute ischemic changes and overall unchanged from prior. Patient had systolic blood pressures 202/87 on arrival. Patient seen today at bedside. He admits he has had chest pain that is ongoing, sometimes unrelenting over several hours, occurring at rest, just under his nipple line. This first started approximately 5 days ago, and is often present at a low intensity throughout the entire day, and can worsen or alleviate without any precipitating or improving factors. Today, he admits he has had chest pain almost all day, it does not radiate, and he describes it as a "soreness ". He denies any additional cardiac symptoms. [facility] Medical History (Updated 03/19/25 @ 15:[address] Eric Chan DO) Chest pain Wears glasses Wears partial dentures Anxiety Blister Prostate disease Back pain Syncope Heartburn History of ulceration Former smoker Shortness of breath on exertion Leg cramps History of edema History of stress test Diverticulitis Hypertension Leukemia Home Medications Medication Instructions Recorded Last Taken Type lisinopril 30 mg tablet 30 mg PO DAILY 03/19/2502/20 History Allergy/AdvReac Type Severity Reaction Status Date / Time erythromycin lactobionate Allergy Rash Verified 03/19/25 10:33 (From Erythrocin) Penicillins (PCN) Allergy Rash Verified 03/19/25 10:33 Surgical History H/O transurethral resection of prostate Hx of colonoscopy History of appendectomy History of tonsillectomy and adenoidectomy History of partial colectomy Social History Smoking Status: Former smoker ROS ROS Narrative 14 point ROS reviewed, and negative will specified in HPI above. Physical Exam Narrative Gen: A&Ox3, NAD HEENT: Normocephalic/Atraumatic, MMM Neck: Supple, no JVD Pulm: Normal work of breathing, CTA bilaterally with no wheezes or crackles CV: RRR, normal S1/S2, no m/r/g Abd: Soft, NT/ND Extr: Warm to touch, no LE edema, distal pulses intact and symmetric in upper and lower extremities Neuro: No gross focal deficits, normal speech Psych: Normal affect, answers questions appropriately Objective Data Vital Signs: Vital Signs Temp Pulse Resp BP Pulse Ox O2 Del Method 97.5 F L 48 L 16 118/64 98 Room Air 03/19/25 10:30 03/19/25 14:00 03/19/25 14:00 03/19/25 14:00 03/19/25 14:00 03/19/25 14:00 Oxygen Delivery Method Room Air Weight: 159 lb 9.835 oz Body Mass Index (BMI) 23.6 Lab / Micro Data 03/19/25 10:47 03/19/25 10:47 Labs: Laboratory Results - last 24 hr 03/19/25 10:47: WBC 8.4, RBC 4.31 L, Hgb 14.5, Hct 41.6, MCV 96.5 H, MCH 33.6 H, MCHC 34.9, RDW Std Deviation 46.5 H, RDW Coeff of Thaddeus 12.9, Plt Count 259, MPV 9.6, Immature Gran % (Auto) 0.700, Neut % (Auto) 72.6 H, Lymph % (Auto) 17.2 L, [place] % (Auto) 7.9, Eos % (Auto) 1.0, Baso % (Auto) 0.6, Absolute Neuts (auto) 6.1, Absolute Lymphs (auto) 1.44, Nucleated RBC % 0, Sodium 141, Potassium 4.3, Chloride 107 H, Carbon Dioxide 23.7, Anion Gap 10, BUN 23 H, Creatinine 1.27 H, Estim Creat Clear Calc 57.22, Est GFR (MDRD) Non-Af 62, BUN/Creatinine Ratio 18.3, Glucose 127 H, Calcium 9.6, Troponin T High Sens 16 03/19/25 12:45: Troponin T Hi Sens 2 Hr 21 Cardiology Labs/Tests 03/19/25 10:47: WBC 8.4, RBC 4.31 L, Hgb 14.5, Hct 41.6, MCV 96.5 H, MCH 33.6 H, MCHC 34.9, Plt Count 259, MPV 9.6, Immature Gran % (Auto) 0.700, Neut % (Auto) 72.6 H, Lymph % (Auto) 17.2 L, [place] % (Auto) 7.9, Eos % (Auto) 1.0, Baso % (Auto) 0.6, Absolute Neuts (auto) 6.1, Nucleated RBC % 0, Sodium 141, Potassium 4.3, Chloride 107 H, Carbon Dioxide 23.7, Anion Gap 10, BUN 23 H, Creatinine 1.27 H, Est GFR (MDRD) Non-Af 62, BUN/Creatinine Ratio 18.3, Glucose 127 H, Calcium 9.6 Rhythm: EKG: ECHO: Stress Test: Cardiac Cath: PCI: CT Surgery: Holter monitor: EPS: PPM: CXR: Chest CT Scan: Radiography Diagnostic Testing: Radiology Impression Chest X-Ray 03/19/25 11:12 IMPRESSION: NO ACUTE FINDINGS. Reading Location: [id number] Risk Score for UA/STEMI Assesmment (YES = 1) Risk Stratification Applicable: No
== END 2025-03-19 16:15 | disposition home or self-care (01) ==
PROVIDERS: Emergency Provider Emergency Medicine; PCP Internal Medicine; Visit Provider Emergency Medicine
DX: R07.9 Chest pain, unspecified (principal); F41.9 Anxiety disorder, unspecified; I12.9 Hypertensive chronic kidney disease with stage 1 through stage 4 chronic kidney disease, or unspecified chronic kidney disease; N18.9 Chronic kidney disease, unspecified; Z87.891 Personal history of nicotine dependence
CPT/HCPCS: 71046; 80048; 84484; 85025; 93005; 99284; A4216